=== PATIENT | male | born 1960 | race Caucasian/White ===

== ENCOUNTER 2020-07-18 11:53 | Outpatient (REF) | payer OTHER, SELFPAY ==
--- NOTE | ~2020-07-18 | XR_ITS ---
EXAMINATION: XR THORACIC SPINE CLINICAL INFORMATION: Sprain of ligaments. COMPARISON: None. TECHNIQUE: 3 views of the thoracic spine were obtained. FINDINGS: Normal vertebral body alignment. The thoracic kyphosis is maintained. No acute fracture or subluxation. No loss of intervertebral disc height with anterior endplate osteophytes within the lower thoracic spine. The visualized lungs are clear. XR/XR thoracic spine 3V IMPRESSION: [id number] degenerative disc disease within the lower thoracic spine.
== END 2020-07-18 11:54 | disposition home or self-care (01) ==
LOC: HO.XRAY 11:53
PROVIDERS: PCP Internal Medicine
DX: S23.3XXA Sprain of ligaments of thoracic spine, initial encounter (principal); M54.6 Pain in thoracic spine
CPT/HCPCS: 72072

== ENCOUNTER 2020-07-19 08:51 | Outpatient (REF) | payer OTHER, SELFPAY ==
[2020-07-19 09:43] LABS: MANUAL DIFF FLAG NO
[2020-07-19 10:02] LABS: Basophils Percent Auto 1.1 % (0-2); Eosinophils Absolute Auto 0.2 X10*3/uL (0.0-0.4); Eosinophils Percent Auto 6.1 % (0-4); Hematocrit 39.6 % (42-52); Hemoglobin 12.4 g/dl (14.0-18.0); Imm Gran Abs Auto 0.01 X10*3/uL (0.00-0.03); Imm Gran Pct Auto 0.3 % (0.0-0.4); Lymphocytes Absolute Auto 1.5 X10*3/uL (1.2-4.9); Lymphocytes Percent Auto 40.5 % (20-40); Mean Corpuscular HGB Conc 31.3 g/dl (31.0-36.0); Mean Corpuscular Hemoglobin 26.8 pg (27.0-33.0); Mean Corpuscular Volume 85.7 fL (80-98); Mean Platelet Volume 10.6 fL (9.4-12.4); Monocytes Absolute Auto 0.4 X10*3/uL (0.1-1.2); Monocytes Percent Auto 11.3 % (2-11); Neutrophils Absolute Auto 1.5 X10*3/uL (2.0-8.3); Neutrophils Percent Auto 40.7 % (45-73); Platelet Count 265 X10*3/uL (160-400); Red Blood Count 4.62 X10*6/uL (4.60-5.80); Red Cell Distribution Width 14.4 % (11.0-16.0); White Blood Count 3.6 X10*3/uL (4.8-10.8)
[2020-07-19 10:10] LABS: Alanine Aminotransferase 20 U/L (0-40); Alkaline Phosphatase 74 U/L (39-117); Anion Gap 12 (12-20); Aspartate Amino Transferase 22 U/L (5-37); Bilirubin Total 0.5 mg/dL (0.0-1.0); Blood Urea Nitrogen 13 mg/dL (9-16); Calcium 9.1 mg/dL (8.4-10.2); Carbon Dioxide 26 mmol/L (22-29); Chloride 105 mmol/L (96-108); Cholesterol 205 mg/dL; Estimated Glomerular Filt Rate > 60; Glucose Fasting 157 mg/dL (60-99); HDL Cholesterol 47 mg/dL; LDL Cholesterol Calculated 143 mg/dl; Potassium 4.4 mmol/L (3.3-5.1); Sodium 139 mmol/L (135-145); Total Protein 7.1 g/dL (6.5-8.0); Triglycerides 75 mg/dL
[2020-07-19 10:51] LABS: Creatinine Urine 197.15 mg/dL; Microalbum/Creatinine Ratio Ur 2.5 ug/mg cr
== END 2020-07-19 08:52 | disposition home or self-care (01) ==
LOC: HO.LAB 08:51
PROVIDERS: PCP Internal Medicine; Visit Provider Internal Medicine
DX: E11.9 Type 2 diabetes mellitus without complications (principal); E78.5 Hyperlipidemia, unspecified; D72.819 Decreased white blood cell count, unspecified
CPT/HCPCS: 36415; 80053; 80061; 82043; 85025

== ENCOUNTER 2020-08-21 12:25 | Emergency (ER) | payer OTHER, SELFPAY ==
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
[2020-08-21 14:01] VITALS: BP 192/90; PULSE 85; RESP 18; TEMP 36.6; BMI 32.5
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
[2020-08-21 15:09] VITALS: BP 169/79; PULSE 76; RESP 16; O2SAT 100
== END 2020-08-21 15:45 | disposition home or self-care (01) ==
PROVIDERS: Emergency Provider Emergency Medicine; PCP Internal Medicine
DX: S29.012A Strain of muscle and tendon of back wall of thorax, initial encounter (principal); S20.211A Contusion of right front wall of thorax, initial encounter; V43.52XA Car driver injured in collision with other type car in traffic accident, initial encounter; I10 Essential (primary) hypertension; E11.9 Type 2 diabetes mellitus without complications; E78.5 Hyperlipidemia, unspecified; Y93.89 Activity, other specified; Y92.414 Local residential or business street as the place of occurrence of the external cause; Y99.9 Unspecified external cause status; Z79.02 Long term (current) use of antithrombotics/antiplatelets; Z79.899 Other long term (current) drug therapy; Z79.84 Long term (current) use of oral hypoglycemic drugs
CPT/HCPCS: 71046; 71110; 99283; 99284

== ENCOUNTER 2020-10-07 11:06 | Emergency (ER) | payer OTHER, SELFPAY ==
[2020-10-07 11:22] VITALS: BP 181/94; PULSE 88; RESP 18; TEMP 36.8; O2SAT 100; BMI 34.9
[2020-10-07 11:49] LABS: Glucose, Whole Blood 170 mg/dL (60-115)
[2020-10-07] MEDS: 0.9 % Sodium Chloride 1,000 ML 999 ML IVCONT (11:54)
--- NOTE | 2020-10-07 11:55 | ED_ITS ---
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 Patient declined any history of loss of weight. Related Data Home Medications Medication Instructions Recorded Confirmed blood sugar diagnostic #10 ea 04/17/20 04/17/20 meloxicam 15 mg tablet 15 mg PO DAILY 04/17/20 04/17/20 metformin 500 mg tablet 500 mg PO BID 04/17/20 04/17/20 sildenafil 100 mg tablet [id number] mg PO DAILY PRN 04/17/20 04/17/20 simvastatin 40 mg tablet 40 mg PO BEDTIME 04/17/20 04/17/20 verapamil 240 mg tablet,extended 240 mg PO DAILY 04/17/20 04/17/20 release Previous Rx's Medication Instructions Recorded lancets 28 gauge #100 ea 07/29/20 fluticasone propionate 50 1 spray INTRANASAL DAILY #16 ml 08/18/20 mcg/actuation nasal spray,suspension lisinopril 10 mg tablet 10 mg PO DAILY 30 Days #30 tab 08/18/20 cyclobenzaprine 10 mg PO TID #10 tab 08/21/20 naproxen [Naprosyn] 500 mg PO BID #20 tab 08/21/20 Allergies Allergy/AdvReac Type Severity Reaction Status Date / Time No Known Allergies Allergy Verified 04/17/20 16:19 [No Known Allergies*] Review of Systems Review of Systems: All other systems are reviewed and are negative Constitutional: Reports as per HPI and Reports no additional constitutional complaints Eyes: Reports as per HPI and Reports no additional eye complaints Reports system reviewed and no additional complaints, except as documented Cardiovascular: Reports as per HPI and Reports no additional cardiovascular complaints Respiratory: Reports as per HPI and Reports no additional respiratory complaints Gastrointestinal: Reports as per HPI and Reports no additional gastrointestinal complaints Genitourinary: Reports no additional female genitourinary complaints Musculoskeletal: Reports no additional musculoskeletal complaints Skin/Breast: Reports system reviewed and no additional complaints, except as docu Psychiatric: Reports no additional psychiatric complaints Endocrine: Reports no additional endocrine complaints Hematologic/Lymphatic: Reports no additional hematologic/lymphatic complaints Allergic/Immunologic: Reports no additional allergic/immunologic complaints Reports system reviewed and no additional complaints, except as documented and Reports Abnormal speech present [facility] Past Medical History Medical History Diabetes mellitus Dyslipidemia Essential hypertension Leg edema Leukopenia Lipoma of extremity Surgical History No pertinent past surgical history Family History Family History Father Diabetes Hypertension CVD (cardiovascular disease) Mother Stroke Diabetes Hypertension Brother No problems noted. Sister No problems noted. Social History Social History Alcohol intake: current Alcohol intake frequency: 3 or more drinks per day Alcohol type: beer Patient Tobacco Use Status: Never used Tobacco Use of substances other than those prescribed or required for medical reasons: No Substance Use Type: Marijuana Advance Directives: No Advance Directives Information Provided: No Physical Exam Vital Signs: Vital Signs: Last Vital Signs Temp 98.8 F 10/07/20 12:09 Pulse 68 10/07/20 12:47 Resp 18 10/07/20 12:47 BP 141/56 H 10/07/20 12:47 Pulse Ox 98 10/07/20 12:47 Body Mass Index 34.9 Vital signs have been reviewed as appeared to be correct. Blood pressure elevated. Heart rate normal. Respiration rate normal. Temperature normal. Oxygen saturation normal. Appearance: Alert. Oriented X3. No acute distress. Head: Normal external exam. Normocephalic. Atraumatic. No Smith signs noted. No raccoon eyes noted Eyes: PERRLA. EOMI. Conjunctiva and sclera normal. Eyelids normal. ENT: TM's Normal. Pharynx normal. Uvula midline. Moist mucous membranes. No trismus noted. No drooling noted. No muffled voice noted. Neck: Normal inspection. Neck supple. FROM. No adenopathy. Thyroid Normal. No meningeal signs. No neck mass noted. CVS: Normal heart rate and rhythm. Heart sound normal. No murmurs noted. Pulses normal throughout. Respiratory: No respiratory distress. Painless inspiration. Breath sounds normal. No wheezes/rales/rhonchi noted. Chest nontender. No accessory muscle usage noted or decreased air movement noted. Abdomen: Soft and nontender. Bowel sounds normal in all 4 quadrants. No distention noted. No organomegaly noted. No visible injury noted. Back: No CVA tenderness. Full range of motion noted. Skin: Skin warm and dry. Normal skin color. Normal skin turgor. No rashes/lesions/lacerations noted. Extremities: No lower extremity edema. Extremities exhibit normal range of motion. Extremities nontender. Neuro: Oriented X 3. No motor deficit. No sensory deficit. Reflexes normal. Course Course Course Narrative: Assessment and plan. Hyperglycemia of 174, otherwise unremarkable electrolytes and labs workup, no evidence of DKA, patient was instructed to follow up with his PCP for closer monitoring of his hyperglycemia. Medical Decision Making Lab Data Lab results reviewed: Yes I reviewed the patient's lab results. Result diagrams: 10/07/20 11:49 10/07/20 11:49 Labs: Lab Results 10/07/20 10/07/20 10/07/20 Range/Units 11:46 11:49 11:49 WBC 5.8 (4.8-10.8) X10*3/uL RBC 4.31 L (4.60-5.80) X10*6/uL Hgb 11.7 L (14.0-18.0) g/dl Hct 36.0 L (42-52) % MCV 83.5 (80-98) fL MCH 27.1 (27.0-33.0) pg MCHC 32.5 (31.0-36.0) g/dl RDW 14.1 (11.0-16.0) % Plt Count 324 (160-400) X10*3/uL MPV 9.9 (9.4-12.4) fL Immature Gran % (Auto) 0.2 (0.0-0.4) % Neut % (Auto) 70.2 (45-73) % Lymph % (Auto) 18.4 L (20-40) % [place] % (Auto) 9.1 (2-11) % Eos % (Auto) 1.4 (0-4) % Baso % (Auto) 0.7 (0-2) % Lymph # (Auto) 1.1 L (1.2-4.9) X10*3/uL [place] # (Auto) 0.5 (0.1-1.2) X10*3/uL Eos # (Auto) 0.1 (0.0-0.4) X10*3/uL Baso # (Auto) 0.0 (0.0-0.2) X10*3/uL Abs Immat Gran (auto) 0.01 (0.00-0.03) X10*3/uL Absolute Neuts (auto) 4.1 (2.0-8.3) X10*3/uL Absolute Nucleated RBC 0.000 (0.0-0.012) X10*3/uL Nucleated RBC % (auto) 0.0 (0.0-0.2) /100WBC Sodium 133 L (135-145) mmol/L Potassium 4.0 (3.3-5.1) mmol/L Chloride 99 (96-108) mmol/L Carbon Dioxide 26 (22-29) mmol/L Anion Gap 12 (12-20) BUN 14 (9-16) mg/dL Creatinine 1.08 (0.5-1.4) mg/dL Estim Creat Clear Calc 84.0 Estimated GFR > 60 POC Glucose 170 H (60-115) mg/dL Random Glucose 178 H (60-115) mg/dL Calcium 9.5 (8.4-10.2) mg/dL Total Bilirubin 0.6 (0.0-1.0) mg/dL Direct Bilirubin 0.2 (0.0-0.5) mg/dL AST 23 (5-37) U/L ALT 15 (0-40) U/L Alkaline Phosphatase 95 D (39-117) U/L Total Protein 7.6 (6.5-8.0) g/dL Albumin 3.9 (3.5-5.0) g/dL Lipase 63 (8-78) U/L Discharge Plan Discharge Clinical Impression: Diabetes mellitus Qualifiers: Diabetes mellitus type: type 2 Diabetes mellitus complication status: without complication Patient Disposition: Home, Self-Care Instructions: Diabetes and Exercise (ED) Prescriptions: No Action (DME) lancets 28 gauge misc See Rx Instructions ea topical DAILY Qty: 100 RF: 11 lisinopril 10 mg tablet 10 mg PO DAILY 30 Days Qty: 30 RF: 6 fluticasone propionate 50 mcg/actuation spray,suspension 1 spray intranasal DAILY Qty: 16 RF: 4 cyclobenzaprine 10 mg tablet 10 mg PO TID Qty: 10 RF: 0 naproxen [Naprosyn] 500 mg tablet 500 mg PO BID Qty: 20 RF: 0 sildenafil 100 mg tablet [id number] mg PO DAILY PRNRF: 0 verapamil 240 mg tablet extended release 240 mg PO DAILY RF: 0 simvastatin 40 mg tablet 40 mg PO BEDTIME RF: 0 meloxicam 15 mg tablet 15 mg PO DAILY RF: 0 metformin 500 mg tablet 500 mg PO BID RF: 0 (DME) FreeStyle Lite Strips Strip See Rx Instructions strip subcut TID Qty: 10 RF: 0 Referrals: Jessica Grajeda MD [Primary Care Provider] - 2 days
[2020-10-07 11:59] LABS: MANUAL DIFF FLAG NO
[2020-10-07 12:00] LABS: Basophils Percent Auto 0.7 % (0-2); Eosinophils Absolute Auto 0.1 X10*3/uL (0.0-0.4); Eosinophils Percent Auto 1.4 % (0-4); Hemoglobin 11.7 g/dl (14.0-18.0); Imm Gran Abs Auto 0.01 X10*3/uL (0.00-0.03); Imm Gran Pct Auto 0.2 % (0.0-0.4); Lymphocytes Absolute Auto 1.1 X10*3/uL (1.2-4.9); Lymphocytes Percent Auto 18.4 % (20-40); Mean Corpuscular HGB Conc 32.5 g/dl (31.0-36.0); Mean Corpuscular Hemoglobin 27.1 pg (27.0-33.0); Mean Corpuscular Volume 83.5 fL (80-98); Mean Platelet Volume 9.9 fL (9.4-12.4); Monocytes Absolute Auto 0.5 X10*3/uL (0.1-1.2); Monocytes Percent Auto 9.1 % (2-11); Neutrophils Absolute Auto 4.1 X10*3/uL (2.0-8.3); Neutrophils Percent Auto 70.2 % (45-73); Platelet Count 324 X10*3/uL (160-400); Red Blood Count 4.31 X10*6/uL (4.60-5.80); Red Cell Distribution Width 14.1 % (11.0-16.0); White Blood Count 5.8 X10*3/uL (4.8-10.8)
[2020-10-07 12:09] VITALS: BP 167/77; PULSE 73; RESP 18; TEMP 37.1; O2SAT 100
[2020-10-07 12:27] LABS: Alanine Aminotransferase 15 U/L (0-40); Albumin Level 3.9 g/dL (3.5-5.0); Alkaline Phosphatase 95 U/L (39-117); Anion Gap 12 (12-20); Aspartate Amino Transferase 23 U/L (5-37); Bilirubin Direct 0.2 mg/dL (0.0-0.5); Bilirubin Total 0.6 mg/dL (0.0-1.0); Blood Urea Nitrogen 14 mg/dL (9-16); Calcium 9.5 mg/dL (8.4-10.2); Carbon Dioxide 26 mmol/L (22-29); Chloride 99 mmol/L (96-108); Estimated Glomerular Filt Rate > 60; Glucose Random 178 mg/dL (60-115); Lipase 63 U/L (8-78); Sodium 133 mmol/L (135-145); Total Protein 7.6 g/dL (6.5-8.0)
[2020-10-07 12:47] VITALS: BP 141/56; PULSE 68; RESP 18; O2SAT 98
== END 2020-10-07 13:02 | disposition home or self-care (01) ==
PROVIDERS: Emergency Provider Emergency Medicine; PCP Internal Medicine
DX: E11.65 Type 2 diabetes mellitus with hyperglycemia (principal); I10 Essential (primary) hypertension; Z79.84 Long term (current) use of oral hypoglycemic drugs; Z79.899 Other long term (current) drug therapy
CPT/HCPCS: 36415; 80048; 80076; 82947; 83690; 85025; 96360; 99284

== ENCOUNTER 2020-10-07 23:53 | Inpatient (IN) | payer OTHER, SELFPAY ==
--- NOTE | ~2020-10-07 | CT_ITS ---
EXAMINATION: CT ABDOMEN AND PELVIS WITH CONTRAST CLINICAL INFORMATION: Epigastric pain COMPARISON: None TECHNIQUE: Multidetector volumetric images were obtained from the superior aspect of the liver through the pubic symphysis following administration 85 mL of Omnipaque 350 intravenous contrast. Sagittal and coronal reformatted images were obtained on the technologist's workstation. Oral contrast: No This CT examination was performed using dose optimization techniques as appropriate, variously including the following: *Automated exposure control *Adjustment of mA and/or kV according to patient size (this includes techniques or standardized protocols for targeted exams where dose is matched to indication/reason for exam; i.e. extremities or head) *Use of iterative reconstruction technique DLP: 750 mGy-cm FINDINGS: LUNG BASES: Minimal basilar atelectasis. 0.4 cm right lower lobe nodule along the pleura, series 6 image 8. LIVER, GALLBLADDER, AND BILIARY TREE: The liver is normal in size, shape, and attenuation. No focal hepatic lesion or biliary ductal dilatation is present. The gallbladder is unremarkable with no evidence of radiopaque gallstones, gallbladder wall thickening, or obvious pericholecystic inflammatory changes. PANCREAS: Unremarkable. SPLEEN: Unremarkable. ADRENAL GLANDS: Unremarkable. KIDNEYS AND URETERS: The kidneys are normal in size, shape, and attenuation. No hydronephrosis, hydroureter, or calculi seen. No perinephric stranding. BLADDER: Unremarkable. GASTROINTESTINAL TRACT: Abnormal stomach. There is gastric wall thickening which is most prominent at the gastric antrum. There is an area of fluid and gas along the dorsal wall, series 3 image 30. This likely represents an ulcer. There is associated perforation with free intraperitoneal air present. Normal caliber small bowel. No obstruction. No colonic wall thickening or inflammatory change. Normal appendix. ABDOMINAL WALL: No significant hernia is appreciated. LYMPH NODES: Normal. VASCULAR: Normal caliber aorta with moderate atherosclerotic calcification. PELVIC VISCERA: The prostate and seminal vesicles are unremarkable. OSSEOUS STRUCTURES: No acute or suspicious osseous abnormality. Mild degenerative changes in the spine. CT/CT abdomen pelvis w con IMPRESSION: Perforated gastric ulcer. This critical result was discussed with Jody Kaiser MD by telephone at 10/08/2020 3:03 AM and it was ascertained that the content and urgency of the report was understood at the time of direct communication.
--- NOTE | ~2020-10-07 | XR_ITS ---
EXAMINATION: XR CHEST CLINICAL INFORMATION: NG tube position COMPARISON: 08/21/2020 TECHNIQUE: Frontal view of the chest was obtained. FINDINGS: Nasogastric tube and side port terminating in the proximal stomach. The lungs are hypoinflated and the cardiomediastinal silhouette is stable. XR/XR chest 1V IMPRESSION: Nasogastric tube terminates in the stomach.
[2020-10-08] VITALS (16 sets, daily range): BP systolic 139–184; BP diastolic 70–86; PULSE 55–98; RESP 14–20; TEMP 36–37.2; O2SAT 96–100; BMI 34.0; BMI 30.7
--- NOTE | 2020-10-08 00:59 | ED_ITS ---
HPI - Abdominal Pain General Chief Complaint: Abdominal Pain Stated Complaint: abd pain Time Seen by Provider: 10/08/20 00:51 History of Present Illness HPI narrative: Patient is 60-year-old male with a history diabetes presents today with having abdominal pain in the epigastric area. Patient had fried foods. Subsequently had pain in the epigastric area. No nausea no vomiting. No chest pain or shortness of breath. No diaphoresis. No history of NE. No diarrhea. Patient is from home. No coughing or congestion. Pain is burning. Nonradiating. No history of abdominal surgery in the past. No history of similar symptoms. Positive constipation. Related Data Home Medications Medication Instructions Recorded Confirmed blood sugar diagnostic #10 ea 04/17/20 04/17/20 meloxicam 15 mg tablet 15 mg PO DAILY 04/17/20 04/17/20 metformin 500 mg tablet 500 mg PO BID 04/17/20 04/17/20 sildenafil 100 mg tablet [id number] mg PO DAILY PRN 04/17/20 04/17/20 simvastatin 40 mg tablet 40 mg PO BEDTIME 04/17/20 04/17/20 verapamil 240 mg tablet,extended 240 mg PO DAILY 04/17/20 04/17/20 release Previous Rx's Medication Instructions Recorded lancets 28 gauge #100 ea 07/29/20 fluticasone propionate 50 1 spray INTRANASAL DAILY #16 ml 08/18/20 mcg/actuation nasal spray,suspension lisinopril 10 mg tablet 10 mg PO DAILY 30 Days #30 tab 08/18/20 cyclobenzaprine 10 mg PO TID #10 tab 08/21/20 naproxen [Naprosyn] 500 mg PO BID #20 tab 08/21/20 Allergies Allergy/AdvReac Type Severity Reaction Status Date / Time No Known Allergies Allergy Verified 04/17/20 16:19 [No Known Allergies*] Review of Systems Review of Systems No fever no chills no chest pain or shortness of breath positive epigastric pain. Yes all other systems are reviewed and are negative Physical Exam Vital Signs: Vital Signs: Last Vital Signs Temp 97.2 F 10/08/20 00:24 Pulse 98 10/08/20 02:00 Resp 16 10/08/20 02:00 BP 148/78 H 10/08/20 02:00 Pulse Ox 98 10/08/20 02:00 Body Mass Index 34.0 Appearance: Alert. Oriented X3. No acute distress. Eyes: Pupils equal, round and reactive to light. ENT: Pharynx normal. Neck: Normal inspection. Neck supple. No lymph nodes noted. No crepitus CVS: Normal heart rate and rhythm. Pulses normal. Normal S1 and S2 Respiratory: No respiratory distress. Breath sounds normal. No Wheezing. No rales Abdomen: Soft and nontender. No rigidity. No distention. good BS x4 Skin: Skin warm and dry. Normal skin color. Normal skin turgor. Extremities: No lower extremity edema. Neurovascular intact to all extremities. No Lacerations. No Rash Neuro: Oriented X 3. No motor deficit. No sensory deficit. Moving all extermities. No slurred speech MDM - Abdominal Pain MDM Narrative Medical decision making narrative: Positive epigastric pain. Patient's electrolytes normal. White count is 8.8. But have epigastric pain. CT scan show perforated gastric ulcer. Surgery contacted emergently. Will start IV antibiotics. Patient will most likely need to go to the OR. Patient's EKG showed a sinus pattern with a right bundle branch block. Heart rate was approximately 90. P IN intervals normal QRS was wide. QT within normal limits nonspecific T-wave flattening noted diffusely IV fluids was started. Patient to be admitted. Differential Diagnosis Differential diagnosis: Likely abdominal pain, aortic dissection, acute appendicitis, bowel perforation, calculus of kidney, constipation, diverticulitis, endometriosis and gastritis Lab Data Result diagrams: 10/08/20 01:52 10/08/20 01:52 Labs: Lab Results 10/08/20 10/08/20 10/08/20 Range/Units 01:52 01:52 01:52 WBC 8.8 (4.8-10.8) X10*3/uL RBC 4.24 L (4.60-5.80) X10*6/uL Hgb 11.6 L (14.0-18.0) g/dl Hct 35.7 L (42-52) % MCV 84.2 (80-98) fL MCH 27.4 (27.0-33.0) pg MCHC 32.5 (31.0-36.0) g/dl RDW 14.3 (11.0-16.0) % Plt Count 305 (160-400) X10*3/uL MPV 9.6 (9.4-12.4) fL Immature Gran % (Auto) 0.3 (0.0-0.4) % Neut % (Auto) 85.0 H (45-73) % Lymph % (Auto) 7.5 L (20-40) % [place] % (Auto) 6.2 (2-11) % Eos % (Auto) 0.7 (0-4) % Baso % (Auto) 0.3 (0-2) % Lymph # (Auto) 0.7 L (1.2-4.9) X10*3/uL [place] # (Auto) 0.5 (0.1-1.2) X10*3/uL Eos # (Auto) 0.1 (0.0-0.4) X10*3/uL Baso # (Auto) 0.0 (0.0-0.2) X10*3/uL Abs Immat Gran (auto) 0.03 (0.00-0.03) X10*3/uL Absolute Neuts (auto) 7.5 (2.0-8.3) X10*3/uL Absolute Nucleated RBC 0.000 (0.0-0.012) X10*3/uL Nucleated RBC % (auto) 0.0 (0.0-0.2) /100WBC Sodium 135 (135-145) mmol/L Potassium 3.9 (3.3-5.1) mmol/L Chloride 99 (96-108) mmol/L Carbon Dioxide 25 (22-29) mmol/L Anion Gap 15 (12-20) BUN 16 (9-16) mg/dL Creatinine 1.11 (0.5-1.4) mg/dL Estim Creat Clear Calc 83.1 Estimated GFR > 60 Random Glucose 176 H (60-115) mg/dL Calcium 9.5 (8.4-10.2) mg/dL Total Bilirubin 0.7 (0.0-1.0) mg/dL Direct Bilirubin 0.3 (0.0-0.5) mg/dL AST 26 (5-37) U/L ALT 16 (0-40) U/L Alkaline Phosphatase 101 (39-117) U/L Troponin I High Sens 13.0 (<3.5-35.0) ng/L Total Protein 7.6 (6.5-8.0) g/dL Albumin 4.0 (3.5-5.0) g/dL Lipase 11 (8-78) U/L Critical Care Time Critical Care Time Total Critical Care Time: 40 Attestation: I have personally provided 40 minutes of critical care time exclus greg of time spent on separately billable procedures. Time includes review of lab data, radiology results, discussion with consultants, and monitoring for potential decompensation. Interventions were performed as documented above Discharge Plan Discharge Clinical Impression: Perforated ulcer of intestine Prescriptions: No Action (DME) lancets 28 gauge misc See Rx Instructions ea topical DAILY Qty: 100 RF: 11 lisinopril 10 mg tablet 10 mg PO DAILY 30 Days Qty: 30 RF: 6 fluticasone propionate 50 mcg/actuation spray,suspension 1 spray intranasal DAILY Qty: 16 RF: 4 cyclobenzaprine 10 mg tablet 10 mg PO TID Qty: 10 RF: 0 naproxen [Naprosyn] 500 mg tablet 500 mg PO BID Qty: 20 RF: 0 sildenafil 100 mg tablet [id number] mg PO DAILY PRNRF: 0 verapamil 240 mg tablet extended release 240 mg PO DAILY RF: 0 simvastatin 40 mg tablet 40 mg PO BEDTIME RF: 0 meloxicam 15 mg tablet 15 mg PO DAILY RF: 0 metformin 500 mg tablet 500 mg PO BID RF: 0 (DME) FreeStyle Lite Strips Strip See Rx Instructions strip subcut TID Qty: 10 RF: 0 PMFSH Past Medical History Attestation statement: The following information was validated with the patient. Medical History Diabetes mellitus Dyslipidemia Essential hypertension Leg edema Leukopenia Lipoma of extremity Surgical History No pertinent past surgical history Family History Family History Father Diabetes Hypertension CVD (cardiovascular disease) Mother Stroke Diabetes Hypertension Brother No problems noted. Sister No problems noted. Social History Social History Alcohol intake: current Alcohol intake frequency: holidays/special occasions only Alcohol type: beer Patient Tobacco Use Status: Never used Tobacco Use of substances other than those prescribed or required for medical reasons: No Substance Use Type: Marijuana Advance Directives: No
--- NOTE | 2020-10-08 00:59 | ECG_ITS ---
Test Reason : CHEST PAIN Blood Pressure : / mmHG Vent. Rate : 088 BPM Atrial Rate : 088 BPM P-R Int : 134 ms QRS Dur : 132 ms QT Int : 396 ms P-R-T Axes : 047 004 026 degrees QTc Int : 479 ms Normal sinus rhythm Right bundle branch block Abnormal ECG No previous ECGs available Referred By: Jody Kaiser Electronically Signed By:NEHA BLAND
[2020-10-08 01:56] LABS: MANUAL DIFF FLAG NO
[2020-10-08 01:57] LABS: Basophils Percent Auto 0.3 % (0-2); Eosinophils Absolute Auto 0.1 X10*3/uL (0.0-0.4); Eosinophils Percent Auto 0.7 % (0-4); Hematocrit 35.7 % (42-52); Hemoglobin 11.6 g/dl (14.0-18.0); Imm Gran Abs Auto 0.03 X10*3/uL (0.00-0.03); Imm Gran Pct Auto 0.3 % (0.0-0.4); Lymphocytes Absolute Auto 0.7 X10*3/uL (1.2-4.9); Lymphocytes Percent Auto 7.5 % (20-40); Mean Corpuscular HGB Conc 32.5 g/dl (31.0-36.0); Mean Corpuscular Hemoglobin 27.4 pg (27.0-33.0); Mean Corpuscular Volume 84.2 fL (80-98); Mean Platelet Volume 9.6 fL (9.4-12.4); Monocytes Absolute Auto 0.5 X10*3/uL (0.1-1.2); Monocytes Percent Auto 6.2 % (2-11); Neutrophils Absolute Auto 7.5 X10*3/uL (2.0-8.3); Platelet Count 305 X10*3/uL (160-400); Red Blood Count 4.24 X10*6/uL (4.60-5.80); Red Cell Distribution Width 14.3 % (11.0-16.0); White Blood Count 8.8 X10*3/uL (4.8-10.8)
[2020-10-08 02:21] LABS: Alanine Aminotransferase 16 U/L (0-40); Alkaline Phosphatase 101 U/L (39-117); Anion Gap 15 (12-20); Aspartate Amino Transferase 26 U/L (5-37); Bilirubin Direct 0.3 mg/dL (0.0-0.5); Bilirubin Total 0.7 mg/dL (0.0-1.0); Blood Urea Nitrogen 16 mg/dL (9-16); Calcium 9.5 mg/dL (8.4-10.2); Carbon Dioxide 25 mmol/L (22-29); Chloride 99 mmol/L (96-108); Creatinine Clr Calc Pharmacy 83.1; Estimated Glomerular Filt Rate > 60; Glucose Random 176 mg/dL (60-115); Lipase 11 U/L (8-78); Potassium 3.9 mmol/L (3.3-5.1); Sodium 135 mmol/L (135-145); Total Protein 7.6 g/dL (6.5-8.0)
[2020-10-08] MEDS: ondansetron HCL 4 MG/2 ML VIAL IVPUSH (02:29)
[2020-10-08] MEDS: PHENobarb/Hyoscy/Atropine/Scop 10 ML ELIXIR PO (02:30)
[2020-10-08] MEDS: Magnesium Hydrox/Alum Hydrox 30 ML ORAL.SUSP PO (02:30)
[2020-10-08] MEDS: Lidocaine HCl Viscous 2 % 15 ML SOLUTION MUCOUS MEM (02:30)
--- NOTE | 2020-10-08 02:34 | PC.NURSE ---
pt going to ct
[2020-10-08] MEDS: iohexoL 350 MG/ML 100 ML INFUS..BTL 85 ML IV (02:50)
[2020-10-08] MEDS: cefTRIAXone sodium 2 GM in 0.9 % Sodium Chloride 50 ML IV (03:30)
[2020-10-08] MEDS: metroNIDAZOLE/NS 500 MG/100 ML PIGGYBACK 100 MG IV (03:30)
[2020-10-08 03:38] LABS: Lactic Acid 1.3 mmol/L (0.5-2.0)
[2020-10-08 03:46] LABS: COVID-19 Test Negative (Negative); IDNOW Serial# 9DD0AD1C
[2020-10-08] MEDS: Pantoprazole Sodium 40 MG/10 ML VIAL IVPUSH (03:48)
[2020-10-08 03:51] LABS: Glucose Urine UA NEG (NEG); Leukocyte Esterase Urine NEG (NEG); Nitrite Urine NEG (NEG); PH 5.5 (5.0-8.0); Urine Blood NEG (NEG); Urine Ketones 40 MG/DL (NEG); Urine Protein NEG (NEG-TRACE)
[2020-10-08 03:52] LABS: Appearance Urine CLEAR; Color Urine YELLOW; UACC Culture Trigger NO
--- NOTE | 2020-10-08 05:16 | P.HPGS_ITS ---
History of Present Illness History of Present Illness Date of Service: 10/08/20 Chief complaint: abd pain Narrative: Uday Glass is a 60 year old male who was feeling well until around 19:00 last night when he had acute onset of severe epigastric pain. The pain was persistent and severe until after he ride in the emergency department. It has diminished somewhat since that time. He reports that he had sweating associated with the pain. He does not report fever, chills, nausea or vomiting. He felt slightly lightheaded at the time of onset of the pain, but that has resolved. He has not had similar pain in the past. He has a history of arthritis and takes nonsteroidal anti-inflammatory medication. He drinks alcohol, generally a few beers a week. He does not smoke cigarettes. In the emergency department, a CT scan of the abdomen and pelvis was obtained and revealed: IMPRESSION: Perforated gastric ulcer. This critical result was discussed with Jody Kaiser MD by telephone at 10/08/2020 3:03 AM and it was ascertained that the content and urgency of the report was understood at the time of direct communication. Dictated By:Naveen Farrell MDSigned By:<Electronically signed by Naveen Farrell MD in OV>10/08/20 0304 Review of Systems Constitutional: Constitutional: Denies chills, Denies fever(s) and Denies headache(s) Eyes: Eyes: Reports requires corrective lenses ENT: Reports dizziness and Denies headache(s) Cardiovascular: Cardiovascular: Denies chest pain, Denies palpitations and Denies dyspnea Respiratory: Respiratory: Denies cough, Denies dyspnea and Denies wheezing Gastrointestinal: Gastrointestinal: Reports as per HPI Genitourinary: Genitourinary: Reports no additional male genitourinary compla ints Musculoskeletal: Musculoskeletal: Reports back pain and Reports arthralgias Neurologic: Reports dizziness and Denies headache(s) Endocrine: Endocrine: Denies palpitations Hematologic/Lymphatic: Hematologic/Lymphatic: Denies easy bleeding and Denies easy bruising Comments: History of leukopenia, etiology unknown Allergic/Immunologic: Allergic/Immunologic: Denies wheezing PMFSH Past Medical History Medical History Diabetes mellitus Dyslipidemia Essential hypertension Leg edema Leukopenia Lipoma of extremity Family History Family History Father Diabetes Hypertension CVD (cardiovascular disease) Mother Stroke Diabetes Hypertension Brother No problems noted. Sister No problems noted. Surgical History Surgical History No pertinent past surgical history Social History Social History Alcohol intake: current Alcohol intake frequency: holidays/special occasions only Alcohol type: beer Patient Tobacco Use Status: Never used Tobacco Use of substances other than those prescribed or required for medical reasons: No Substance Use Type: Marijuana Advance Directives: No Meds Allergies Allergy/AdvReac Type Severity Reaction Status Date / Time No Known Allergies Allergy Verified 04/17/20 16:19 [No Known Allergies*] Active Medications: Current Medications Generic Name Dose Route Start Last Admin Trade Name Freq PRN Reason Stop Dose Admin Cefazolin Sodium/Dextrose 2 gm in 50 mls @ 100 mls/hr 10/08/20 05:10 Ancef IV 10/08/20 05:39 POSTOP ONE Home Medications Medication Instructions Recorded Confirmed Last Taken Type blood sugar diagnostic #10 ea 04/17/20 04/17/20 Unknown History meloxicam 15 mg tablet 15 mg PO DAILY 04/17/20 04/17/20 Unknown History metformin 500 mg tablet 500 mg PO BID 04/17/20 04/17/20 Unknown History sildenafil 100 mg tablet [id number] mg PO DAILY PRN 04/17/20 04/17/20 Unknown History simvastatin 40 mg tablet 40 mg PO BEDTIME 04/17/20 04/17/20 Unknown History verapamil 240 mg tablet,extended 240 mg PO DAILY 04/17/20 04/17/20 Unknown History release Physical Exam Vital Signs: Vital Signs: Last Vital Signs Temp 99.0 F 10/08/20 05:13 Pulse 85 10/08/20 05:13 Resp 16 10/08/20 05:13 BP 147/75 H 10/08/20 05:13 Pulse Ox 99 10/08/20 05:13 Body Mass Index 34.0 Const: General: cooperative, no acute distress and alert Orientation/consciousness: patient oriented x3 HENMT: Head: Yes normocephalic and Yes atraumatic Eyes: General: appearance normal, both eyes and all related structures Neck: Neck: Yes trachea midline and Yes supple Resp: Effort & Inspection: normal respiratory effort Auscultation: clear to auscultation bilaterally Cardio: Rate: regular rate Rhythm: regular rhythm Peripheral pulses: posterior tibial pulses present bilateral 2+ and dorsalis pedis present bilateral 2+ GI: Other: Slightly firm, normal bowel sounds, no palpable masses, mild to moderate epigastric tenderness, no rebound Skin: Other: Normal color, warm and dry Neuro: General: patient oriented x3 Extrem: General: Yes normal to inspection Results Results Labs: Short CBC 10/08/20 Range/Units 01:52 WBC 8.8 (4.8-10.8) X10*3/uL Hgb 11.6 L (14.0-18.0) g/dl Hct 35.7 L (42-52) % Plt Count 305 (160-400) X10*3/uL BMP 10/08/20 01:52 Sodium 135 Potassium 3.9 Chloride 99 Carbon Dioxide 25 BUN 16 Creatinine 1.11 Calcium 9.5 Liver Function 10/08/20 Range/Units 01:52 Total Bilirubin 0.7 (0.0-1.0) mg/dL Direct Bilirubin 0.3 (0.0-0.5) mg/dL AST 26 (5-37) U/L ALT 16 (0-40) U/L Alkaline Phosphatase 101 (39-117) U/L Albumin 4.0 (3.5-5.0) g/dL Urine 10/08/20 Range/Units 03:45 Urine Color YELLOW Urine Appearance CLEAR Urine pH 5.5 (5.0-8.0) Ur Specific [place] 1.010 (1.005-1.025) Urine Protein NEG (NEG-TRACE) MG/DL Urine Glucose (UA) NEG (NEG) MG/DL Assessment and Plan (1) Perforated ulcer of intestine: Status: Acute (2) Diabetes mellitus: Qualifiers: Diabetes mellitus type: type 2 Diabetes mellitus complication status: without complication Status: Acute (3) Essential hypertension: Status: Acute 60-year-old male with history and CT findings consistent with acute pe rforation of peptic ulcer, likely related to use of nonsteroidal anti- inflammatory medications for treatment of arthritis. Other etiologies are possible. We discussed treatment options. I explained that recommended treatment is exploration of the abdomen with repair of the perforation and a possible bowel resection, possible temporary ostomy. I reviewed the option for non operative treatment of perforated ulcer with NG decompression but recommended against this course of treatment because of the significant risk of treatment failure. We discussed risks of surgery including but not limited to infection, bleeding, DVT and PE, failure of the repair with need for further surgery, incisional hernia. We discussed the anticipated course of recovery. He agreed to proceed with exploratory laparotomy and repair perforated viscus. That is scheduled for this morning. Has received an initial dose of IV Protonix. Will monitor blood sugar and cover with sliding scale insulin during initial postoperative period. Monitor blood pressure and resume antihypertensives postoperatively. Quality Stroke Does the patient have a stroke diagnosis?: No VTE Prior VTE?: No VTE Risk Level:: Surgical - moderate VTE Device Contraindication: N/A - Device Ordered VTE Drug Contraindication: Treatment Not Indicated Procedures Date of Service Date of Service: 10/08/20
[2020-10-08] MEDS: ceFAZolin Sodium/Dextrose,Iso 2 GM/50 ML PIGGYBACK IV (05:36)
--- NOTE | 2020-10-08 05:51 | PC.NURSE ---
nurse to nurse report given to Taina FISHER.
--- NOTE | 2020-10-08 06:05 | P.CONAN_ITS ---
[facility] Active Problems Active Problems: All Active Problems (Updated 10/08/20 @ 03:08 by Jody Kaiser MD) Perforated ulcer of intestine (Acute) Leukopenia (Acute) Leg edema (Acute) Essential hypertension (Acute) Diabetes mellitus (Acute) Dyslipidemia (Acute) Past Medical History Medical History Diabetes mellitus Dyslipidemia Essential hypertension Leg edema Leukopenia Lipoma of extremity Family History Family History Father Diabetes Hypertension CVD (cardiovascular disease) Mother Stroke Diabetes Hypertension Brother No problems noted. Sister No problems noted. Surgical History Surgical History No pertinent past surgical history Social History Social History Alcohol intake: current Alcohol intake frequency: holidays/special occasions only Alcohol type: beer Patient Tobacco Use Status: Never used Tobacco Use of substances other than those prescribed or required for medical reasons: No Substance Use Type: Marijuana Advance Directives: No Meds Allergies Allergy/AdvReac Type Severity Reaction Status Date / Time No Known Allergies Allergy Verified 04/17/20 16:19 [No Known Allergies*] Home Medications Medication Instructions Recorded Confirmed Last Taken Type blood sugar diagnostic #10 ea 04/17/20 04/17/20 Unknown History meloxicam 15 mg tablet 15 mg PO DAILY 04/17/20 04/17/20 Unknown History metformin 500 mg tablet 500 mg PO BID 04/17/20 04/17/20 Unknown History sildenafil 100 mg tablet [id number] mg PO DAILY PRN 04/17/20 04/17/20 Unknown History simvastatin 40 mg tablet 40 mg PO BEDTIME 04/17/20 04/17/20 Unknown History verapamil 240 mg tablet,extended 240 mg PO DAILY 04/17/20 04/17/20 Unknown History release Exam Exam Date and Time: October 08, 2020604 Height,Weight and Vital Signs: Height 5 ft 9 in Weight 104.326 kg Last Vital Signs Temp 99.0 F 10/08/20 05:13 Pulse 85 10/08/20 05:13 Resp 16 10/08/20 05:13 BP 147/75 H 10/08/20 05:13 Pulse Ox 99 10/08/20 05:13 Pertinent Lab Results Pertinent Lab Results: Laboratory Tests 10/08/20 10/08/20 10/08/20 01:52 01:52 01:52 WBC 8.8 RBC 4.24 L Hgb 11.6 L Hct 35.7 L MCV 84.2 MCH 27.4 MCHC 32.5 RDW 14.3 Plt Count 305 MPV 9.6 Immature Gran % (Auto) 0.3 Neut % (Auto) 85.0 H Lymph % (Auto) 7.5 L [place] % (Auto) 6.2 Eos % (Auto) 0.7 Baso % (Auto) 0.3 Lymph # (Auto) 0.7 L [place] # (Auto) 0.5 Eos # (Auto) 0.1 Baso # (Auto) 0.0 Abs Immat Gran (auto) 0.03 Absolute Neuts (auto) 7.5 Absolute Nucleated RBC 0.000 Nucleated RBC % (auto) 0.0 Sodium 135 Potassium 3.9 Chloride 99 Carbon Dioxide 25 Anion Gap 15 BUN 16 Creatinine 1.11 Estim Creat Clear Calc 83.1 Estimated GFR > 60 Random Glucose 176 H Lactic Acid Calcium 9.5 Total Bilirubin 0.7 Direct Bilirubin 0.3 AST 26 ALT 16 Alkaline Phosphatase 101 Troponin I High Sens 13.0 Total Protein 7.6 Albumin 4.0 Lipase 11 Urine Color Urine Appearance Urine pH Ur Specific [place] Urine Protein Urine Glucose (UA) Urine Ketones Urine Blood Urine Nitrite Ur Leukocyte Esterase COVID-19 (K[facility]LY) COVID-19 Clin Com Blood Type Antibody Screen 10/08/20 10/08/20 10/08/20 03:17 03:25 03:25 WBC RBC Hgb Hct MCV MCH MCHC RDW Plt Count MPV Immature Gran % (Auto) Neut % (Auto) Lymph % (Auto) [place] % (Auto) Eos % (Auto) Baso % (Auto) Lymph # (Auto) [place] # (Auto) Eos # (Auto) Baso # (Auto) Abs Immat Gran (auto) Absolute Neuts (auto) Absolute Nucleated RBC Nucleated RBC % (auto) Sodium Potassium Chloride Carbon Dioxide Anion Gap BUN Creatinine Estim Creat Clear Calc Estimated GFR Random Glucose Lactic Acid 1.3 Calcium Total Bilirubin Direct Bilirubin AST ALT Alkaline Phosphatase Troponin I High Sens Total Protein Albumin Lipase Urine Color Urine Appearance Urine pH Ur Specific [place] Urine Protein Urine Glucose (UA) Urine Ketones Urine Blood Urine Nitrite Ur Leukocyte Esterase COVID-19 (KARLY) Negative COVID-19 Clin Com See Note Blood Type A Positive Antibody Screen NEGATIVE 10/08/20 03:45 WBC RBC Hgb Hct MCV MCH MCHC RDW Plt Count MPV Immature Gran % (Auto) Neut % (Auto) Lymph % (Auto) [place] % (Auto) Eos % (Auto) Baso % (Auto) Lymph # (Auto) [place] # (Auto) Eos # (Auto) Baso # (Auto) Abs Immat Gran (auto) Absolute Neuts (auto) Absolute Nucleated RBC Nucleated RBC % (auto) Sodium Potassium Chloride Carbon Dioxide Anion Gap BUN Creatinine Estim Creat Clear Calc Estimated GFR Random Glucose Lactic Acid Calcium Total Bilirubin Direct Bilirubin AST ALT Alkaline Phosphatase Troponin I High Sens Total Protein Albumin Lipase Urine Color YELLOW Urine Appearance CLEAR Urine pH 5.5 Ur Specific [place] 1.010 Urine Protein NEG Urine Glucose (UA) NEG Urine Ketones 40 Urine Blood NEG Urine Nitrite NEG Ur Leukocyte Esterase NEG COVID-19 ([facility]LY) COVID-19 Clin Com Blood Type Antibody Screen Airway Mallampati Class: II TM Dist: >3cm Neck ROM: Full Loose/Missing/Broken Teeth: Yes (Multiple missing teeth) Heart: RRR Lungs: CTA Assessment and Plan Assessment Anesthesia Assessment: Anesthesia Plan Discussed and Chart Reviewed Final Anesthetic Review NPO: Yes ASA Class: III and Emergency Final Preanesthetic Review: No Changes in Pt Med Stat, Meds/Allgs Chart Reviewed, Consent Obtained/Reviewed and Anes Risks/Benef Reviewed Patient Risk: Intermediate Procedure Risk: High Anesthetic Plan Anesthetic Plan: GA Disposition: Standard PACU
[2020-10-08 06:39] LABS: Glucose, Whole Blood 155 mg/dL (60-115)
--- NOTE | 2020-10-08 08:02 | P.OP_ITS ---
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 He presented to the emergency room. CT scan of the abdomen and pelvis revealed free intraperitoneal air and findi ngs consistent with a perforated ulcer at the level the gastric antrum. Procedure in detail: With the patient in the supine position after induction of adequate general anesthesia, time-out procedure was performed. The abdomen was prepped with ChloraPrep and was draped sterilely. 2 g of cefazolin were infused for antibiotic prophylaxis. The area for the incision in the upper midline was infiltrated with local anesthetic. A short upper midline incision was made and was carried down to the level of the fascia. The fascia was divided in the midline and the peritoneal cavity was entered. Exploration of the upper abdomen revealed a small amount of enteric contents in the right upper quadrant. The anterior gastric wall in the pre-pyloric antrum was very indurated and there was an anterior perforation approximately 1 x 0.6 cm. Cultures were taken. The upper abdomen was copiously irrigated with saline solution. The Bookwalter retractor was positioned. The perforation was repaired using at 3 sutures of 2 0 Surgilon. The ends of these sutures were left long initially. Omentum was then placed over the repair and was held in place using the redundant suture material from the closure of the perforation. The right upper quadrant was again copiously irrigated with saline solution. There is no evidence of bleeding. A 10 mm Regis-Houston drain was inserted into the right upper quadrant and was placed over the omentum adjacent to the area of the repair. The fascia was infiltrated with local anesthetic and that was closed in a running fashion using 1. Maxon. Subcutaneous tissues were infiltrated with local anesthetic. Skin was closed using javan. The drain was sutured in place using 3-0 nylon. A dry sterile dressing was applied. An NG tube was inserted. Sponge instrument counts were correct x2. He was transported to the postanesthesia care unit in stable condition.
[2020-10-08 08:21] LABS: Glucose, Whole Blood 200 mg/dL (60-115)
--- NOTE | 2020-10-08 08:31 | PC.NURSE ---
Patient arrived to PACU with #20 PRN angio in left AC and #22 PRN angio in right AC. Both sites flushed and asymptomatic.
[2020-10-08] MEDS: Lactated Ringers 1,000 ML 100 ML IVCONT ×2 (09:14→18:31)
[2020-10-08] MEDS: Piperacillin Sodium/Tazobactam 3.375 GM in 0.9 % Sodium Chloride 50 ML IV ×3 (09:27→21:05)
[2020-10-08 09:29] LABS: Glucose, Whole Blood 203 mg/dL (60-115)
[2020-10-08] MEDS: Pantoprazole Sodium 40 MG/10 ML VIAL IV (09:29)
[2020-10-08] MEDS: Insulin Lispro 100 UNIT/ML 3 ML VIAL SUBCUT (09:35)
[2020-10-08 11:25] LABS: Glucose, Whole Blood 198 mg/dL (60-115)
[2020-10-08 18:09] LABS: Glucose, Whole Blood 144 mg/dL (60-115)
[2020-10-09 00:07] LABS: Glucose, Whole Blood 145 mg/dL (60-115)
[2020-10-09] MEDS: Piperacillin Sodium/Tazobactam 3.375 GM in 0.9 % Sodium Chloride 50 ML IV ×4 (03:01→21:42)
[2020-10-09 03:35] VITALS: BP 123/71; PULSE 84; RESP 16; TEMP 36.1; O2SAT 97
[2020-10-09] MEDS: Lactated Ringers 1,000 ML 100 ML IVCONT ×2 (05:29→14:39)
[2020-10-09 06:10] LABS: Glucose, Whole Blood 135 mg/dL (60-115)
[2020-10-09 07:18] VITALS: BP 136/64; PULSE 86; RESP 18; TEMP 36.1; O2SAT 97
[2020-10-09 07:36] LABS: Hematocrit 31.7 % (42-52); Hemoglobin 10.4 g/dl (14.0-18.0); Mean Corpuscular HGB Conc 32.8 g/dl (31.0-36.0); Mean Corpuscular Hemoglobin 27.7 pg (27.0-33.0); Mean Corpuscular Volume 84.3 fL (80-98); Mean Platelet Volume 10.5 fL (9.4-12.4); Platelet Count 303 X10*3/uL (160-400); Red Blood Count 3.76 X10*6/uL (4.60-5.80); Red Cell Distribution Width 14.3 % (11.0-16.0); White Blood Count 9.7 X10*3/uL (4.8-10.8)
--- NOTE | 2020-10-09 08:05 | PM.PNGS ---
Subjective Subjective Date of Service: 10/09/20 Interval history: says he is ok seems to have adequate pain control no events reported Physical Exam Vital Signs: Vital Signs: Last Vital Signs Temp 97.0 F 10/09/20 07:18 Pulse 86 10/09/20 07:18 Resp 18 10/09/20 07:18 BP 136/64 10/09/20 07:18 Pulse Ox 97 10/09/20 07:18 Body Mass Index 30.7 Laboratory Results - last 24 hr 10/08/20 10/08/20 10/08/20 08:18 09:20 11:03 WBC RBC Hgb Hct MCV MCH MCHC RDW Plt Count MPV Absolute Nucleated RBC Nucleated RBC % (a uto) POC Glucose 200 H 203 H 198 H 10/08/20 10/08/20 10/09/20 17:58 23:58 06:05 WBC RBC Hgb Hct MCV MCH MCHC RDW Plt Count MPV Absolute Nucleated RBC Nucleated RBC % (a uto) POC Glucose 144 H 145 H 135 H 10/09/20 06:55 WBC 9.7 RBC 3.76 L Hgb 10.4 L Hct 31.7 L MCV 84.3 MCH 27.7 MCHC 32.8 RDW 14.3 Plt Count 303 MPV 10.5 Absolute Nucleated RBC 0.000 Nucleated RBC % (a uto) 0.0 POC Glucose Const: General: comfortable and no acute distress Resp: Effort & Inspection: normal respiratory effort Cardio: Rate: regular rate GI: Other: soft, dressings dry, PONCE scanty, NGT in place Progress Note: A&P Assessment and plan (1) Perforated ulcer of intestine: Status: Acute Assessment and Plan: s/p repair with omental patch doing well postop keep NGT in labs ok OOB pain mgt PPI Fall Risk Details Current Medications: Current Medications Generic Name Dose Route Start Last Admin Trade Name Freq PRN Reason Stop Dose Admin Lactated Ringer's 1,000 mls @ 100 mls/hr 10/08/20 08:54 10/09/20 05:29 Lr IVCONT 100 mls/hr .Q10H ZACHARY Administration Piperacillin Sod/Tazobactam 50 mls @ 100 mls/hr 10/08/20 08:54 10/09/20 03:35 Sod 3.375 gm/ Sodium Chloride IV Infused Q6H ZACHARY Infusion Acetaminophen 1,000 mg in 100 mls @ 400 mls/hr 10/08/20 11:15 10/09/20 05:49 Ofirmev IV Infused Q6H ZACHARY Infusion Insulin Human Lispro 0 unit 10/08/20 18:00 10/09/20 06:11 Insulin Lispro 100 Unit/Ml 3 Ml Vial SUBCUT Not Given Q6H [facility] Protocol Morphine Sulfate 4 mg 10/08/20 08:54 Morphine Sulfate 4 Mg/Ml Cartridge IVPUSH Q3H PRN Pain, severe Ondansetron HCl 4 mg 10/08/20 08:54 Ondansetron Hcl 4 Mg/2 Ml Vial IVPUSH Q8H PRN Nausea Pantoprazole Sodium 40 mg 10/08/20 09:00 10/08/20 09:29 Pantoprazole Sodium 40 Mg/10 Ml Vial IV 40 mg DAILY ZACHARY Administration Time Spent With Patient Time: Total time spent is greater than 50% in coordination of care (as documented) at patient's floor/unit and/or counseling patient: Time with patient: 15 - 24 minutes Procedures Date of Service Date of Service: 10/09/20 Quality Stroke Does the patient have a stroke diagnosis?: No VTE Prior VTE?: No VTE Risk Level:: Surgical - moderate VTE Device Contraindication: N/A - Device Ordered VTE Drug Contraindication: Treatment Not Indicated
[2020-10-09 08:34] LABS: Anion Gap 16 (12-20); Blood Urea Nitrogen 9 mg/dL (9-16); Calcium 8.7 mg/dL (8.4-10.2); Carbon Dioxide 23 mmol/L (22-29); Chloride 102 mmol/L (96-108); Creatinine Clr Calc Pharmacy 103.3; Estimated Glomerular Filt Rate > 60; Glucose Fasting 136 mg/dL (60-99); Potassium 3.5 mmol/L (3.3-5.1); Sodium 137 mmol/L (135-145)
[2020-10-09] MEDS: Pantoprazole Sodium 40 MG/10 ML VIAL IV (09:52)
[2020-10-09 11:10] VITALS: BP 139/71; PULSE 84; RESP 17; TEMP 36.3; O2SAT 97
[2020-10-09 11:19] LABS: Glucose, Whole Blood 118 mg/dL (60-115)
--- NOTE | 2020-10-09 13:02 | HO.POSTANES ---
Post Anesthesia Evaluation Post Anesthesia Evaluation Vital Signs: Vital Signs Temp Pulse Resp BP Pulse Ox 10/09/20 11:10 97.3 F 84 17 139/71 97 10/09/20 07:18 97.0 F 86 18 136/64 97 10/09/20 03:35 96.9 F 84 16 123/71 97 Anesthesia: General Endotracheal-GETA Mental Status: Awake Pain Control: Satisfactory Nausea/Vomiting: None Hydration: Adequate Anesthesia-Related Issues: No Anes. Related Issues
--- NOTE | 2020-10-09 13:25 | MHC.CM.PN ---
nurse healthcare customer service note electronic medical record reviewed along with case discused with edelmira nurse , met patient with [facility] service scheduler. dhaval pina lives with his father, he is active , independent in all adls and mobility ,without any device , he is disabled and receives mental health counseling, confirmed pcp dr Santino KWON NO DME SERVICES IN THE HOME, EDUCATED ABOUT THE IMPORTANCE OF HAVING AHEALTH CARE PROXY DECLINED AT THIS TIME , HE CONTINUES TO BE NPO , NG-TUBE , IV FLUIDS AND IV ABX . DISCHARGE PLAN HOME NO SERVICES VS HOME WITH [facility] ([facility]OS[facility]) IF NEEDED PCP DR SANTINO KWON TRANSPORTATION PATIENT TO SELF ARRANGE
--- NOTE | 2020-10-09 14:36 | MHC.CLN ---
NUTRITION PAITENT IS CURRENTLY NPO WITH PERFORATED PEPTIC ULCER. WHEN PO ADVANCES, RECOMMEND THERAPEUTIC DIET DUE TO DX DM. DIABETIC 2200 KCAL PROVIDES 28 KCAL/KG CMW. DEFER TO MD FOR DIET CONSISTENCY.
[2020-10-09 15:45] VITALS: BP 146/75; PULSE 71; RESP 20; TEMP 36.1; O2SAT 100
[2020-10-09 17:29] LABS: Glucose, Whole Blood 105 mg/dL (60-115)
[2020-10-09 19:09] VITALS: BP 141/76; PULSE 81; RESP 20; TEMP 36.1; O2SAT 99
[2020-10-09 23:53] VITALS: BP 147/71; PULSE 80; RESP 16; TEMP 36.4; O2SAT 97
[2020-10-10 00:10] LABS: Glucose, Whole Blood 84 mg/dL (60-115)
[2020-10-10] MEDS: Lactated Ringers 1,000 ML 100 ML IVCONT ×2 (03:18→23:08)
[2020-10-10] MEDS: Piperacillin Sodium/Tazobactam 3.375 GM in 0.9 % Sodium Chloride 50 ML IV ×4 (03:47→20:39)
[2020-10-10 04:00] VITALS: BP 150/75; PULSE 80; RESP 16; TEMP 36; O2SAT 95
[2020-10-10 06:09] LABS: Glucose, Whole Blood 97 mg/dL (60-115)
[2020-10-10 07:45] VITALS: BP 153/74; PULSE 82; RESP 17; TEMP 36.7; O2SAT 97
[2020-10-10] MEDS: Pantoprazole Sodium 40 MG/10 ML VIAL IV (08:44)
--- NOTE | 2020-10-10 09:12 | PM.PNGS ---
Subjective Subjective Date of Service: 10/10/20 Interval history: Says he feels okay Pain seems well controlled No events overnight Physical Exam Vital Signs: Vital Signs: Last Vital Signs Temp 98.0 F 10/10/20 07:45 Pulse 82 10/10/20 07:45 Resp 17 10/10/20 07:45 BP 153/74 H 10/10/20 07:45 Pulse Ox 97 10/10/20 07:45 Body Mass Index 30.7 Const: General: comfortable and no acute distress Resp: Effort & Inspection: normal respiratory effort Cardio: Rhythm: regular rhythm GI: Other: Dressings dry, PONCE drain serous, NG tube output minimal Palpation (GI): Soft to palpation, not firm and no guarding Progress Note: A&P Assessment and plan (1) Perforated ulcer of intestine: Status: Acute Assessment and Plan: Status post over-sew, omental patch Seems to be doing well No fever Stable vital signs Possibly DC NG tube later today and hope to start clear liquids tomorrow Continue PPI Fall Risk Details Current Medications: Current Medications Generic Name Dose Route Start Last Admin Trade Name Freq PRN Reason Stop Dose Admin Lactated Ringer's 1,000 mls @ 100 mls/hr 10/08/20 08:54 10/10/20 03:18 Lr IVCONT 100 mls/hr .Q10H ZACHARY Administration Piperacillin Sod/Tazobactam 50 mls @ 100 mls/hr 10/08/20 08:54 10/10/20 08:44 Sod 3.375 gm/ Sodium Chloride IV 100 mls/hr Q6H ZACHRAY Administration Acetaminophen 1,000 mg in 100 mls @ 400 mls/hr 10/08/20 11:15 10/10/20 05:48 Ofirmev IV Infused Q6H ZACHARY Infusion Insulin Human Lispro 0 unit 10/08/20 18:00 10/10/20 05:49 Insulin Lispro 100 Unit/Ml 3 Ml Vial SUBCUT Not Given Q6H [facility] Protocol Morphine Sulfate 4 mg 10/08/20 08:54 Morphine Sulfate 4 Mg/Ml Cartridge IVPUSH Q3H PRN Pain, severe Ondansetron HCl 4 mg 10/08/20 08:54 Ondansetron Hcl 4 Mg/2 Ml Vial IVPUSH Q8H PRN Nausea Pantoprazole Sodium 40 mg 10/08/20 09:00 10/10/20 08:44 Pantoprazole Sodium 40 Mg/10 Ml Vial IV 40 mg DAILY ZACHARY Administration Time Spent With Patient Time: Total time spent is greater than 50% in coordination of care (as documented) at patient's floor/unit and/or counseling patient: Time with patient: 15 - 24 minutes Procedures Date of Service Date of Service: 10/10/20 Quality Stroke Does the patient have a stroke diagnosis?: No VTE Prior VTE?: No VTE Risk Level:: Surgical - moderate VTE Device Contraindication: N/A - Device Ordered VTE Drug Contraindication: Treatment Not Indicated
[2020-10-10 11:05] VITALS: BP 148/69; PULSE 69; RESP 17; TEMP 36.2; O2SAT 99
[2020-10-10 11:25] LABS: Glucose, Whole Blood 92 mg/dL (60-115)
[2020-10-10 15:42] VITALS: BP 162/75; PULSE 80; RESP 20; TEMP 36.4; O2SAT 99
[2020-10-10 17:43] LABS: Glucose, Whole Blood 89 mg/dL (60-115)
[2020-10-10 19:59] VITALS: BP 180/70; PULSE 85; RESP 20; TEMP 36.6; O2SAT 99
[2020-10-10] MEDS: VerapamiL HCL SR 120 MG TABLET.ER 240 MG PO (20:39)
[2020-10-11] VITALS: BP 144/77; PULSE 96; RESP 16; TEMP 36.1; O2SAT 95
[2020-10-11] MEDS: Piperacillin Sodium/Tazobactam 3.375 GM in 0.9 % Sodium Chloride 50 ML IV ×4 (03:17→21:18)
[2020-10-11 03:55] VITALS: BP 136/70; PULSE 80; RESP 16; TEMP 36.4; O2SAT 97
[2020-10-11 05:30] LABS: Glucose, Whole Blood 98 mg/dL (60-115)
[2020-10-11 05:55] LABS: Glucose, Whole Blood 95 mg/dL (60-115)
[2020-10-11 07:17] VITALS: BP 159/68; PULSE 78; RESP 18; TEMP 36.7; O2SAT 99
[2020-10-11] MEDS: Pantoprazole Sodium 40 MG/10 ML VIAL IV (07:44)
--- NOTE | 2020-10-11 09:22 | PM.PNGS ---
Subjective Subjective Date of Service: 10/11/20 Interval history: Says he feels well Passing flatus Denies severe pain Physical Exam Vital Signs: Vital Signs: Last Vital Signs Temp 98.0 F 10/11/20 07:17 Pulse 78 10/11/20 07:17 Resp 18 10/11/20 07:17 BP 159/68 H 10/11/20 07:17 Pulse Ox 99 10/11/20 07:17 Body Mass Index 30.7 Laboratory Results - last 24 hr 10/10/20 10/10/20 10/11/20 11:18 17:40 00:03 POC Glucose 92 89 98 10/11/20 05:52 POC Glucose 95 Const: Other: Looks well, comfortable, ambulating Resp: Effort & Inspection: normal respiratory effort Cardio: Rate: regular rate GI: Other: Soft, dressings dry, NG tube in place, PONCE drain with scanty output, clear serous Progress Note: A&P Assessment and plan (1) Perforated ulcer of intestine: Status: Acute Assessment and Plan: Looks well Will DC NG tube Start sips of clear liquids today Continue to ambulate Doing well postop Continue PPI Fall Risk Details Current Medications: Current Medications Generic Name Dose Route Start Last Admin Trade Name Freq PRN Reason Stop Dose Admin Lactated Ringer's 1,000 mls @ 100 mls/hr 10/08/20 08:54 10/11/20 05:59 Lr IVCONT Not Given .Q10H ZACHARY Piperacillin Sod/Tazobactam 50 mls @ 100 mls/hr 10/08/20 08:54 10/11/20 08:24 Sod 3.375 gm/ Sodium Chloride IV Infused Q6H ZACHARY Infusion Acetaminophen 1,000 mg in 100 mls @ 400 mls/hr 10/08/20 11:15 10/11/20 05:59 Ofirmev IV Infused Q6H ZACHARY Infusion Insulin Human Lispro 0 unit 10/08/20 18:00 10/11/20 05:59 Insulin Lispro 100 Unit/Ml 3 Ml Vial SUBCUT Not Given Q6H [facility] Protocol Morphine Sulfate 4 mg 10/08/20 08:54 Morphine Sulfate 4 Mg/Ml Cartridge IVPUSH Q3H PRN Pain, severe Ondansetron HCl 4 mg 10/08/20 08:54 Ondansetron Hcl 4 Mg/2 Ml Vial IVPUSH Q8H PRN Nausea Pantoprazole Sodium 40 mg 10/08/20 09:00 10/11/20 07:44 Pantoprazole Sodium 40 Mg/10 Ml Vial IV 40 mg DAILY ZACHARY Administration Verapamil HCl 240 mg 10/11/20 09:00 Verapamil Hcl Sr 240 Mg Tablet.Er PO DAILY ZACHARY Protocol Time Spent With Patient Time: Total time spent is greater than 50% in coordination of care (as documented) at patient's floor/unit and/or counseling patient: Time with patient: 15 - 24 minutes Procedures Date of Service Date of Service: 10/11/20 Quality Stroke Does the patient have a stroke diagnosis?: No VTE Prior VTE?: No VTE Risk Level:: Surgical - moderate VTE Device Contraindication: N/A - Device Ordered VTE Drug Contraindication: Treatment Not Indicated
[2020-10-11] MEDS: VerapamiL HCL SR 240 MG TABLET.ER PO (10:18)
[2020-10-11] MEDS: Lactated Ringers 1,000 ML 100 ML IVCONT ×2 (10:21→21:18)
[2020-10-11 11:18] VITALS: BP 156/68; PULSE 73; RESP 17; TEMP 36.3; O2SAT 98
[2020-10-11] MEDS: Insulin Lispro 100 UNIT/ML 3 ML VIAL SUBCUT (11:43)
[2020-10-11 11:55] LABS: Glucose, Whole Blood 190 mg/dL (60-115)
[2020-10-11 15:19] VITALS: BP 155/71; PULSE 66; RESP 16; TEMP 36.6; O2SAT 100
[2020-10-11 16:57] LABS: Glucose, Whole Blood 109 mg/dL (60-115)
[2020-10-11 18:53] VITALS: BP 131/65; PULSE 65; RESP 17; TEMP 36.7; O2SAT 98
[2020-10-11 20:40] LABS: Glucose, Whole Blood 147 mg/dL (60-115)
[2020-10-11 23:46] LABS: Glucose, Whole Blood 127 mg/dL (60-115)
[2020-10-12] VITALS (7 sets, daily range): BP systolic 141–172; BP diastolic 64–87; PULSE 67–76; RESP 15–17; TEMP 36.2–37.4; O2SAT 97–99
[2020-10-12] MEDS: Piperacillin Sodium/Tazobactam 3.375 GM in 0.9 % Sodium Chloride 50 ML IV ×4 (03:25→21:46)
[2020-10-12 06:16] LABS: Glucose, Whole Blood 124 mg/dL (60-115)
[2020-10-12] MEDS: Pantoprazole Sodium 40 MG/10 ML VIAL IV (08:14)
[2020-10-12] MEDS: VerapamiL HCL SR 240 MG TABLET.ER PO (08:14)
--- NOTE | 2020-10-12 09:55 | PM.PNGS ---
Subjective Subjective Date of Service: 10/12/20 Interval history: He feels well today denies severe pain tolerating liquids no nausea passing flatus Physical Exam Vital Signs: Vital Signs: Last Vital Signs Temp 99.3 F 10/12/20 07:20 Pulse 71 10/12/20 07:20 Resp 17 10/12/20 07:20 BP 172/76 H 10/12/20 07:20 Pulse Ox 97 10/12/20 07:20 Body Mass Index 30.7 Laboratory Results - last 24 hr 10/11/20 10/11/20 10/11/20 11:22 16:52 20:26 POC Glucose 190 H 109 147 H 10/11/20 10/12/20 23:42 06:11 POC Glucose 127 H 124 H Const: Other: looks well, sitting up chair Resp: Effort & Inspection: normal respiratory effort GI: Other: incision clean and dry, PONCE drain clear serous and scanty Palpation (GI): Soft to palpation and not firm Progress Note: A&P Assessment and plan (1) Perforated ulcer of intestine: Status: Acute Assessment and Plan: status post repair with omental patch doing very well clinically looks good advance diet possible DC home Fall Risk Details Current Medications: Current Medications Generic Name Dose Route Start Last Admin Trade Name Freq PRN Reason Stop Dose Admin Lactated Ringer's 1,000 mls @ 100 mls/hr 10/08/20 08:54 10/12/20 07:29 Lr IVCONT Infused .Q10H ZACHARY Infusion Piperacillin Sod/Tazobactam 50 mls @ 100 mls/hr 10/08/20 08:54 10/12/20 08:51 Sod 3.375 gm/ Sodium Chloride IV Infused Q6H ZACHARY Infusion Acetaminophen 1,000 mg in 100 mls @ 400 mls/hr 10/08/20 11:15 10/12/20 05:49 Ofirmev IV Infused Q6H ZACHARY Infusion Insulin Human Lispro 0 unit 10/08/20 18:00 10/12/20 06:14 Insulin Lispro 100 Unit/Ml 3 Ml Vial SUBCUT Not Given Q6H ZACHARY Protocol Morphine Sulfate 4 mg 10/08/20 08:54 Morphine Sulfate 4 Mg/Ml Cartridge IVPUSH Q3H PRN Pain, severe Ondansetron HCl 4 mg 10/08/20 08:54 Ondansetron Hcl 4 Mg/2 Ml Vial IVPUSH Q8H PRN Nausea Pantoprazole Sodium 40 mg 10/08/20 09:00 10/12/20 08:14 Pantoprazole Sodium 40 Mg/10 Ml Vial IV 40 mg DAILY ZACHARY Administration Verapamil HCl 240 mg 10/11/20 09:00 10/12/20 08:14 Verapamil Hcl Sr 240 Mg Tablet.Er PO 240 mg DAILY ZACHARY Administration Protocol Time Spent With Patient Time: Total time spent is greater than 50% in coordination of care (as documented) at patient's floor/unit and/or counseling patient: Time with patient: 15 - 24 minutes Procedures Date of Service Date of Service: 10/12/20 Quality Stroke Does the patient have a stroke diagnosis?: No VTE Prior VTE?: No VTE Risk Level:: Surgical - moderate VTE Device Contraindication: N/A - Device Ordered VTE Drug Contraindication: Treatment Not Indicated
[2020-10-12 11:22] LABS: Glucose, Whole Blood 172 mg/dL (60-115)
[2020-10-12] MEDS: Insulin Lispro 100 UNIT/ML 3 ML VIAL SUBCUT (11:53)
[2020-10-12 16:37] LABS: Glucose, Whole Blood 140 mg/dL (60-115)
[2020-10-13 00:13] LABS: Glucose, Whole Blood 118 mg/dL (60-115)
[2020-10-13] MEDS: Piperacillin Sodium/Tazobactam 3.375 GM in 0.9 % Sodium Chloride 50 ML IV ×2 (02:55→09:30)
[2020-10-13 03:13] VITALS: BP 149/78; PULSE 66; RESP 15; TEMP 36.6; O2SAT 98
[2020-10-13 05:45] LABS: Glucose, Whole Blood 121 mg/dL (60-115)
[2020-10-13 07:19] VITALS: BP 178/95; PULSE 81; RESP 20; TEMP 36.4; O2SAT 97
--- NOTE | 2020-10-13 08:46 | MHC.CM.PN ---
dc plan is home no svcs. vs. home c vna. cm to cont. to follow.
[2020-10-13] MEDS: Pantoprazole Sodium 40 MG/10 ML VIAL IV (09:30)
[2020-10-13] MEDS: VerapamiL HCL SR 240 MG TABLET.ER PO (09:31)
--- NOTE | 2020-10-13 09:52 | PM.PNGS ---
Subjective Subjective Date of Service: 10/13/20 Interval history: Feels well Tolerating diet Denies pain Says he is ready to go home Physical Exam Vital Signs: Vital Signs: Last Vital Signs Temp 97.5 F 10/13/20 07:19 Pulse 81 10/13/20 07:19 Resp 20 10/13/20 07:19 BP 178/95 H 10/13/20 07:19 Pulse Ox 97 10/13/20 07:19 Body Mass Index 30.7 Const: General: comfortable and no acute distress GI: Other: Incision clean and dry, PONCE drain clear, scanty Palpation (GI): Soft to palpation, not firm, nontender and no guarding Progress Note: A&P Assessment and plan (1) Perforated ulcer of intestine: Status: Acute Assessment and Plan: Status post over-sew, mental patch Doing well Looks comfortable Good GI function PONCE drain DC Given discharge instructions Follow-up in the office Fall Risk Details Current Medications: Current Medications Generic Name Dose Route Start Last Admin Trade Name Freq PRN Reason Stop Dose Admin Piperacillin Sod/Tazobactam 50 mls @ 100 mls/hr 10/08/20 08:54 10/13/20 09:30 Sod 3.375 gm/ Sodium Chloride IV 100 mls/hr Q6H ZACHARY Administration Acetaminophen 1,000 mg in 100 mls @ 400 mls/hr 10/08/20 11:15 10/13/20 05:31 Ofirmev IV Infused Q6H ZACHARY Infusion Insulin Human Lispro 0 unit 10/08/20 18:00 10/13/20 05:46 Insulin Lispro 100 Unit/Ml 3 Ml Vial SUBCUT Not Given Q6H ZACHARY Protocol Ondansetron HCl 4 mg 10/08/20 08:54 Ondansetron Hcl 4 Mg/2 Ml Vial IVPUSH Q8H PRN Nausea Pantoprazole Sodium 40 mg 10/08/20 09:00 10/13/20 09:30 Pantoprazole Sodium 40 Mg/10 Ml Vial IV 40 mg DAILY ZACHARY Administration Verapamil HCl 240 mg 10/11/20 09:00 10/13/20 09:31 Verapamil Hcl Sr 240 Mg Tablet.Er PO 240 mg DAILY ZACHARY Administration Protocol Time Spent With Patient Time: Total time spent is greater than 50% in coordination of care (as documented) at patient's floor/unit and/or counseling patient: Time with patient: 15 - 24 minutes Procedures Date of Service Date of Service: 10/13/20 Quality Stroke Does the patient have a stroke diagnosis?: No VTE Prior VTE?: No VTE Risk Level:: Surgical - moderate VTE Device Contraindication: N/A - Device Ordered VTE Drug Contraindication: Treatment Not Indicated
--- NOTE | 2020-10-23 14:26 | PM.DS ---
DS: Providers Provider Date of Service: 10/13/20 Date of admission: 10/08/20 08:30 Primary care physician: Jessica Cha MD DS: Diagnosis Discharge Diagnosis (1) Perforated ulcer of intestine: Status: Resolved DS: Medications Discharge Medications Home Medications: Home Medications Medication Instructions Recorded Confirmed sildenafil 100 mg tablet [id number] mg PO DAILY PRN 04/17/20 10/23/20 Previous Rx's Medication Instructions Recorded lancets 28 gauge #100 ea 07/29/20 fluticasone propionate 50 1 spray INTRANASAL DAILY #16 ml 08/18/20 mcg/actuation nasal spray,suspension lisinopril 10 mg tablet 10 mg PO DAILY 30 Days #30 tab 08/18/20 cyclobenzaprine 10 mg PO TID #10 tab 08/21/20 omeprazole magnesium [Prilosec OTC] 20 mg PO BID #60 tab 10/13/20 oxycodone-acetaminophen [Percocet] 1 - 2 tab PO Q4-6H PRN #30 tab 10/13/20 blood sugar diagnostic 1 strip MISCELLANEOUS TID 30 Days 10/16/20 #100 strip hydrochlorothiazide 12.5 mg tablet 12.5 mg PO DAILY 90 Days #90 tab 10/16/20 metformin 500 mg tablet 500 mg PO BID #180 tab 10/16/20 simvastatin 40 mg tablet 40 mg PO QPM #90 tab 10/17/20 cephalexin 500 mg tablet 500 mg PO BID 10 Days #20 tab 10/18/20 DS: Summary Hospital Course Hospital Course: 60-year-old male admitted on 10/08/2020 for abdominal pain. His CAT scan showed free air with what appeared to be a perforated gastric ulcer. He therefore underwent emergency me, with over-sew of a perforated gastric ulcer, along with omental patching with Dr. Perez. He tolerated procedure well. He had NG tube in place in a PONCE drain. He was kept on IV antibiotics with Zosyn. His NG tube was discontinued on his 2nd postop day. He was started on clear liquids which he tolerated well. His diet was therefore slowly advance. We continued do well with good GI functions. He was stable throughout his hospital stay. He was therefore discharged on 10/13/2020. His PONCE drain was removed prior to discharge. At the time of his discharge, he was tolerating regular diet and had good GI functions. Time spent discussing smoking cessation with patient: 3 to 10 minutes Time Spent with Patient Time attestation: Total time spent providing and/or coordinating discharge services: Discharge coordination time: Less than 30 minutes Quality: Stroke Does the patient have a stroke diagnosis?: No Reason for No Anti-thrombotic at DC: N/A - Med Ordered Reason for No Anticoagulant at DC: N/A - Med Ordered Physical Exam Vital Signs: Vital Signs: Last Vital Signs Temp 97.5 F 10/13/20 07:19 Pulse 81 10/13/20 07:19 Resp 20 10/13/20 07:19 BP 178/95 H 10/13/20 07:19 Pulse Ox 97 10/13/20 07:19 Body Mass Index 30.7 Const: General: comfortable and no acute distress Orientation/consciousness: patient oriented x3 Neck: Neck: Yes no lymphadenopathy Resp: Auscultation: clear to auscultation bilaterally Cardio: Rhythm: regular rhythm GI: Other: Incision healing well, javan intact Palpation (GI): Soft to palpation, nontender and no guarding Neuro: General: patient oriented x3 DS: Data Data Completed and Pending Completed studies during hospitalization [Text1]: Procedures Supplement Stomach, Pylorus with Autologous Tissue Substitute, Open Approach (10/08/20) Discharge Plan Discharge Patient Disposition: Home, Self-Care Discharge Diagnosis: perforated ulcer Referrals: Devan RM [Outside] - 1 Week Bradley Beard MD [Physician] - 1 Week Jessica Grajeda MD [Primary Care Provider] - 1 Week Discharge Medications: New oxycodone-acetaminophen [Percocet] 5-325 mg tablet 1 - 2 tab PO Q4-6H PRN (Reason: pain) Qty: 30 RF: 0 omeprazole magnesium [Prilosec OTC] 20 mg tablet,delayed release (DR/EC) 20 mg PO BID Qty: 60 RF: 2 Continued (DME) lancets 28 gauge misc See Rx Instructions ea topical DAILY Qty: 100 RF: 11 lisinopril 10 mg tablet 10 mg PO DAILY 30 Days Qty: 30 RF: 6 fluticasone propionate 50 mcg/actuation spray,suspension 1 spray intranasal DAILY Qty: 16 RF: 4 cyclobenzaprine 10 mg tablet 10 mg PO TID Qty: 10 RF: 0 sildenafil 100 mg tablet [id number] mg PO DAILY PRNRF: 0 Discontinued naproxen [Naprosyn] 500 mg tablet 500 mg PO BID Qty: 20 RF: 0 meloxicam 15 mg tablet 15 mg PO DAILY RF: 0 No Action blood sugar diagnostic [FreeStyle Lite Strips] Strip 1 strip miscellaneous TID 30 Days Qty: 100 RF: 6 metformin 500 mg tablet 500 mg PO BID Qty: 180 RF: 3 hydrochlorothiazide 12.5 mg tablet 12.5 mg PO DAILY 90 Days Qty: 90 RF: 1 simvastatin 40 mg tablet 40 mg PO QPM Qty: 90 RF: 3 cephalexin 500 mg tablet 500 mg PO BID 10 Days Qty: 20 RF: 0 Discharge Orders: Discharge Order (Routine); Ordered 10/13/20 Ordered By: Bradley Beard Activity on Discharge: No heavy lifting Stand Alone Forms: Patient Portal Discharge page Activity Restrictions/Additional Instructions: If the incision area is tender, you may apply an ice pack for short intervals (No more than 20 minutes on, followed by at least 20 minutes off). Do not apply heat. Do not use creams, lotions, or topical antibiotics unless instructed to do so by your surgeon. These can cause infection or allergic reaction. OK to shower No lifting more than 20 lbs No strenuous activities Call the office for follow-up in 2 weeks - with Dr. Beard Call Your Doctor If: -Your temperature exceeds 101.5? F -You experience excessive pain or swelling -You have an unexpected reaction to medication -You have excessive bleeding -You experience continued vomiting/nausea -Your incision begins to separate -Your incision shows signs of infection such as increased redness, swelling, excessive pain, drainage (light blood or clear fluid is normal) or heat Care Plan Goals: pain control avoid NSAIDs control blood sugar control hypertension Health Concerns: diabetes hypertension Plan of Treatment: oral pain meds PPI no NSAIDs control DM control HTN Assessment: doing well postop Discharge Date/Time: 10/13/20 15:06
== END 2020-10-13 15:06 | disposition home or self-care (01) | DRG 222 ==
LOC: HO.ED 10-08 05:59 → HO.SSS 10-08 08:09 → HO.S3 10-08 08:31
PROVIDERS: Admitting Provider Surgery; Emergency Provider Emergency Medicine Emergency Medical Services; PCP Internal Medicine; Visit Provider Surgery
PROC: (CPT 49000; principal; 2020-10-08 05:10)
DX: K25.5 Chronic or unspecified gastric ulcer with perforation (principal); E11.9 Type 2 diabetes mellitus without complications; E78.5 Hyperlipidemia, unspecified; Z79.52 Long term (current) use of systemic steroids; Z79.84 Long term (current) use of oral hypoglycemic drugs; Z79.899 Other long term (current) drug therapy
CPT/HCPCS: 36415; 71045; 74177; 80048; 80076; 81003; 82947; 83605; 83690; 84484; 85025; 85027; 86850; 86900; 86901; 87040; 87071; 87077; 87205; 87635; 93005; 99024; 99285; J0131; J0690; J0696; J2405; J2543; J3010; Q9967

== ENCOUNTER → 2020-10-23 13:48 | Outpatient (BNVA) | payer OTHER, SELFPAY | PROVIDERS: PCP Internal Medicine; Referring Provider Internal Medicine; Visit Provider Surgery | DX: K25.5 Chronic or unspecified gastric ulcer with perforation (principal); E11.9 Type 2 diabetes mellitus without complications; E78.5 Hyperlipidemia, unspecified; I10 Essential (primary) hypertension; Z79.84 Long term (current) use of oral hypoglycemic drugs; Z79.899 Other long term (current) drug therapy | CPT/HCPCS: 99212 ==

== ENCOUNTER → 2020-11-03 08:25 | Outpatient (BNVA) | payer OTHER, SELFPAY | PROVIDERS: PCP Internal Medicine; Visit Provider Urology | DX: N40.0 Benign prostatic hyperplasia without lower urinary tract symptoms (principal); E11.69 Type 2 diabetes mellitus with other specified complication; N52.1 Erectile dysfunction due to diseases classified elsewhere | CPT/HCPCS: 99212 ==

== ENCOUNTER 2021-01-22 08:31 | Outpatient (REF) | payer OTHER, SELFPAY ==
[2021-01-22 08:45] LABS: MANUAL DIFF FLAG NO
[2021-01-22 09:16] LABS: Basophils Percent Auto 1.2 % (0-2); Eosinophils Absolute Auto 0.1 X10*3/uL (0.0-0.4); Eosinophils Percent Auto 3.2 % (0-4); Hematocrit 38.9 % (42-52); Hemoglobin 12.3 g/dl (14.0-18.0); Imm Gran Abs Auto 0.01 X10*3/uL (0.00-0.03); Imm Gran Pct Auto 0.3 % (0.0-0.4); Lymphocytes Absolute Auto 1.1 X10*3/uL (1.2-4.9); Lymphocytes Percent Auto 33.1 % (20-40); Mean Corpuscular HGB Conc 31.6 g/dl (31.0-36.0); Mean Corpuscular Hemoglobin 26.6 pg (27.0-33.0); Mean Platelet Volume 10.2 fL (9.4-12.4); Monocytes Absolute Auto 0.3 X10*3/uL (0.1-1.2); Monocytes Percent Auto 9.3 % (2-11); Neutrophils Absolute Auto 1.8 X10*3/uL (2.0-8.3); Neutrophils Percent Auto 52.9 % (45-73); Platelet Count 269 X10*3/uL (160-400); Red Blood Count 4.63 X10*6/uL (4.60-5.80); Red Cell Distribution Width 17.2 % (11.0-16.0); White Blood Count 3.4 X10*3/uL (4.8-10.8)
[2021-01-22 09:37] LABS: Alanine Aminotransferase 19 U/L (0-40); Alkaline Phosphatase 83 U/L (39-117); Anion Gap 10 (12-20); Aspartate Amino Transferase 22 U/L (5-37); Bilirubin Total 0.7 mg/dL (0.0-1.0); Blood Urea Nitrogen 10 mg/dL (9-16); Calcium 9.5 mg/dL (8.4-10.2); Carbon Dioxide 28 mmol/L (22-29); Chloride 105 mmol/L (96-108); Cholesterol 227 mg/dL; Estimated Glomerular Filt Rate > 60; Glucose Fasting 194 mg/dL (60-99); HDL Cholesterol 53 mg/dL; LDL Cholesterol Calculated 152 mg/dl; Potassium 4.4 mmol/L (3.3-5.1); Sodium 139 mmol/L (135-145); Total Protein 7.4 g/dL (6.5-8.0); Triglycerides 114 mg/dL
[2021-01-22 09:45] LABS: Creatinine Urine 188.32 mg/dL; Microalbum/Creatinine Ratio Ur 4.2 ug/mg cr
[2021-01-22 09:58] LABS: Prostate Specific Antigen 0.32 ng/mL (<0.05-4.0)
== END 2021-01-22 08:32 | disposition home or self-care (01) ==
LOC: HO.LAB 08:31
PROVIDERS: Urology; PCP Internal Medicine; Visit Provider Internal Medicine
DX: N13.8 Other obstructive and reflux uropathy (principal); E11.9 Type 2 diabetes mellitus without complications; D64.9 Anemia, unspecified; E78.5 Hyperlipidemia, unspecified; N40.1 Benign prostatic hyperplasia with lower urinary tract symptoms
CPT/HCPCS: 36415; 80053; 80061; 82043; 84153; 85025

== ENCOUNTER → 2021-02-02 09:18 | Outpatient (BNVA) | payer OTHER, SELFPAY | PROVIDERS: PCP Internal Medicine; Visit Provider Urology ==

== ENCOUNTER → 2021-08-14 08:43 | Outpatient (BNVA) | payer OTHER, SELFPAY | PROVIDERS: PCP Internal Medicine; Visit Provider Urology | DX: E11.69 Type 2 diabetes mellitus with other specified complication (principal); N52.1 Erectile dysfunction due to diseases classified elsewhere | CPT/HCPCS: 51798; 99212 ==

== ENCOUNTER 2021-08-29 07:59 | Outpatient (REF) | payer OTHER, SELFPAY ==
[2021-08-29 08:42] LABS: MANUAL DIFF FLAG NO
[2021-08-29 09:37] LABS: Basophils Absolute Auto 0.1 X10*3/uL (0.0-0.2); Basophils Percent Auto 1.6 % (0-2); Eosinophils Absolute Auto 0.2 X10*3/uL (0.0-0.4); Eosinophils Percent Auto 5.3 % (0-4); Hematocrit 40.8 % (42.0-52.0); Hemoglobin 13.2 g/dl (14.0-18.0); Imm Gran Abs Auto 0.01 X10*3/uL (0.00-0.03); Imm Gran Pct Auto 0.3 % (0.0-0.4); Lymphocytes Absolute Auto 1.2 X10*3/uL (1.2-4.9); Lymphocytes Percent Auto 38.7 % (20-40); Mean Corpuscular HGB Conc 32.4 g/dl (31.0-36.0); Mean Corpuscular Hemoglobin 28.9 pg (27.0-33.0); Mean Corpuscular Volume 89.5 fL (80.0-98.0); Mean Platelet Volume 10.8 fL (9.4-12.4); Monocytes Absolute Auto 0.4 X10*3/uL (0.1-1.2); Neutrophils Absolute Auto 1.4 x10*3/uL (2.0-8.3); Neutrophils Percent Auto 43.1 % (45-73); Platelet Count 206 X10*3/uL (160-400); Red Blood Count 4.56 X10*6/uL (4.60-5.80); Red Cell Distribution Width 13.7 % (11.0-16.0); White Blood Count 3.2 X10*3/uL (4.8-10.8)
[2021-08-29 10:22] LABS: Alanine Aminotransferase 17 U/L (0-40); Albumin Level 4.2 g/dL (3.5-5.0); Alkaline Phosphatase 64 U/L (39-117); Anion Gap 11 (12-20); Aspartate Amino Transferase 23 U/L (5-37); Bilirubin Total 0.6 mg/dL (0.0-1.0); Blood Urea Nitrogen 15 mg/dL (9-16); Calcium 9.5 mg/dL (8.4-10.2); Carbon Dioxide 27 mmol/L (22-29); Chloride 106 mmol/L (96-108); Cholesterol 207 mg/dL; Estimated Glomerular Filt Rate > 60; Glucose Fasting 166 mg/dL (60-99); HDL Cholesterol 50 mg/dL; Iron 148 mcg/dL (45-160); LDL Cholesterol Calculated 132 mg/dl; Percent Iron Saturation 39 % (15-50); Potassium 4.7 mmol/L (3.3-5.1); Sodium 139 mmol/L (135-145); Total Iron Binding Capacity 378 mcg/dL (228-428); Total Protein 7.3 g/dL (6.5-8.0); Triglycerides 126 mg/dL; Unsaturated Iron Binding 230 ug/dL
[2021-08-29 12:02] LABS: Microalbum/Creatinine Ratio Ur 3.2 ug/mg cr
[2021-09-03 13:57] LABS: Vitamin D 25-OH, D2 <4 ng/mL; Vitamin D 25-OH, D3 19 ng/mL; Vitamin D 25-OH, Total 19 ng/mL (30-100)
== END 2021-08-29 08:00 | disposition home or self-care (01) ==
LOC: HO.LAB 07:59
PROVIDERS: PCP Internal Medicine; Visit Provider Internal Medicine
DX: E11.9 Type 2 diabetes mellitus without complications (principal); D64.9 Anemia, unspecified; E78.5 Hyperlipidemia, unspecified; E55.9 Vitamin D deficiency, unspecified
CPT/HCPCS: 36415; 80053; 80061; 82043; 82306; 83540; 85025

== ENCOUNTER 2021-11-12 07:23 | Outpatient (REF) | payer OTHER, SELFPAY ==
[2021-11-12 07:39] LABS: MANUAL DIFF FLAG NO
[2021-11-12 08:01] LABS: Basophils Percent Auto 1.2 % (0-2); Eosinophils Absolute Auto 0.1 X10*3/uL (0.0-0.4); Eosinophils Percent Auto 2.8 % (0-4); Hematocrit 39.9 % (42.0-52.0); Hemoglobin 13.3 g/dl (14.0-18.0); Imm Gran Abs Auto 0.01 X10*3/uL (0.00-0.03); Imm Gran Pct Auto 0.3 % (0.0-0.4); Lymphocytes Absolute Auto 1.1 X10*3/uL (1.2-4.9); Lymphocytes Percent Auto 32.4 % (20-40); Mean Corpuscular HGB Conc 33.3 g/dl (31.0-36.0); Mean Corpuscular Hemoglobin 29.5 pg (27.0-33.0); Mean Corpuscular Volume 88.5 fL (80.0-98.0); Monocytes Absolute Auto 0.4 X10*3/uL (0.1-1.2); Monocytes Percent Auto 11.3 % (2-11); Neutrophils Absolute Auto 1.7 x10*3/uL (2.0-8.3); Platelet Count 233 X10*3/uL (160-400); Red Blood Count 4.51 X10*6/uL (4.60-5.80); Red Cell Distribution Width 13.2 % (11.0-16.0); White Blood Count 3.3 X10*3/uL (4.8-10.8)
[2021-11-12 08:33] LABS: Alanine Aminotransferase 26 U/L (0-40); Albumin Level 4.1 g/dL (3.5-5.0); Alkaline Phosphatase 57 U/L (39-117); Anion Gap 14 (12-20); Aspartate Amino Transferase 28 U/L (5-37); Bilirubin Total 0.7 mg/dL (0.0-1.0); Blood Urea Nitrogen 13 mg/dL (9-16); Calcium 9.3 mg/dL (8.4-10.2); Carbon Dioxide 27 mmol/L (22-29); Chloride 102 mmol/L (96-108); Cholesterol 171 mg/dL; Estimated Glomerular Filt Rate > 60; Glucose Fasting 180 mg/dL (60-99); HDL Cholesterol 56 mg/dL; Iron 151 mcg/dL (45-160); LDL Cholesterol Calculated 95 mg/dl; Percent Iron Saturation 39 % (15-50); Potassium 4.6 mmol/L (3.3-5.1); Sodium 138 mmol/L (135-145); Total Iron Binding Capacity 386 mcg/dL (228-428); Total Protein 7.3 g/dL (6.5-8.0); Triglycerides 103 mg/dL; Unsaturated Iron Binding 235 ug/dL
[2021-11-12 08:56] LABS: Vitamin D 25-OH Total 25.5 ng/mL (>30)
[2021-11-12 09:08] LABS: Creatinine Urine 358.06 mg/dL
== END 2021-11-12 07:24 | disposition home or self-care (01) ==
LOC: HO.LAB 07:23
PROVIDERS: PCP Internal Medicine; Visit Provider Internal Medicine
DX: E11.9 Type 2 diabetes mellitus without complications (principal); D64.9 Anemia, unspecified; E78.5 Hyperlipidemia, unspecified; D72.819 Decreased white blood cell count, unspecified; E55.9 Vitamin D deficiency, unspecified
CPT/HCPCS: 36415; 80053; 80061; 82043; 82306; 83540; 85025

== ENCOUNTER → 2022-02-14 08:34 | Outpatient (BNVA) | payer OTHER, SELFPAY | PROVIDERS: PCP Internal Medicine; Visit Provider Urology | DX: E11.69 Type 2 diabetes mellitus with other specified complication (principal); N52.1 Erectile dysfunction due to diseases classified elsewhere | CPT/HCPCS: 99212 ==

== ENCOUNTER 2023-03-05 02:30 | Emergency (ER) | payer OTHER, SELFPAY ==
[2023-03-05 02:35] VITALS: BP 127/82; PULSE 75; RESP 18; TEMP 36.6; O2SAT 100; BMI 31.7
--- NOTE | 2023-03-05 03:17 | ED_ITS ---
HPI - General Adult General Chief complaint: General Medical Stated complaint: High Blood Pressure Time Seen by Provider: 03/05/23 03:06 Source: patient Mode of arrival: ambulatory Limitations: no limitations History of Present Illness HPI narrative: 62 yo male with PMH of HTN, HLD, DM here with c/o waking up with bad dream and coming to ED but now he denies everything to me and states he feels better he has no complaints and wants to go home. He wants nothing else. He states he is not in crisis. MD complaint: ?bad dream Onset (ago): minute(s) Radiation: non-radiation Severity: moderate Relieving factors: none Exacerbating factors: none Associated symptoms: denies other symptoms Treatments prior to arrival: none Related Data Previous Rx's Medication Instructions Recorded lancets 28 gauge #100 ea 07/29/20 fluticasone propionate 50 1 spray intranasal DAILY #16 mL 08/18/20 mcg/actuation nasal spray,suspension blood sugar diagnostic (FreeStyle 1 strip miscellaneous TID 30 days 04/10/21 Lite Strips) #100 strips dulaglutide 0.75 mg/0.5 mL 0.75 mg (0.5 mL) subcut QWEEK 90 01/22/22 subcutaneous pen injector days #6.5 mL (Trulicity) tadalafil 10 mg tablet 10 mg PO DAILY 90 days #90 tabs 02/14/22 tadalafil 20 mg tablet 20 mg PO ONCE PRN sexual activity 02/14/22 30 days #30 tabs blood-glucose meter (FreeStyle #1 ea 07/18/22 Lite Meter kit) chlorthalidone 25 mg tablet 25 mg PO DAILY 90 days #90 tabs 01/16/23 cholecalciferol (vitamin D3) 25 25 mcg PO DAILY 90 days #90 caps 01/16/23 mcg (1,000 unit) capsule lisinopril 40 mg tablet 40 mg PO DAILY 90 days #90 tabs 01/16/23 metformin 1,000 mg tablet 1,000 mg PO BID 90 days #180 tabs 01/16/23 simvastatin 80 mg tablet 80 mg PO BEDTIME 90 days #90 tabs 01/16/23 Allergies Allergy/AdvReac Type Severity Reaction Status Date / Time No Known Allergies Allergy Verified 03/05/23 02:35 [No Known Allergies*] Review of Systems Review of Systems: Constitutional : No Fever, No Chills ENT/Mouth : No Ear Pain, No Nasal Congestion, No sore throat Eyes: No Eye Pain, No Swelling, No Redness Cardiovascular : No Chest Pain, No SOB Respiratory : No Cough, No Sputum, No Dyspnea Gastrointestinal : No Nausea, No Vomiting, No Diarrhea, No Hematochezia, No Melena Genitourinary : No Dysuria, No Urinary Frequency, No Hematuria Musculoskeletal : No Myalgias Skin : No Skin Lesions, No rash Neuro : No Weakness, No Numbness, No Paresthesias, No Dizziness, No Headache Psych : positive Anxiety, noDepression, no SI/HI All other systems reviewed and are negative PMFSH Past Medical History Attestation statement: The following information was validated with the patient. Source: old records reviewed Medical History GERD (gastroesophageal reflux disease) Perforated gastric ulcer Leukopenia Leg edema Lipoma of extremity Essential hypertension Diabetes mellitus Dyslipidemia Surgical History History of exploratory laparotomy History of intestinal surgery Family History Family History Father Diabetes Hypertension CVD (cardiovascular disease) Mother Stroke Diabetes Hypertension Brother No problems noted. Sister No problems noted. Family/Other Mental health disorder Social History Social History Household Members: Family Housing: House Alcohol intake: current Alcohol intake frequency: a few times a month Alcohol type: beer Patient Tobacco Use Status: Never used Tobacco e-Cigarette/Vaping Use: Never Used Second Hand Smoke Exposure: No Substance Use Type: Marijuana service: No Current occupational status: disabled Cognitive needs: No Hearing needs: No Vision needs: No Physical Exam ED Vital Signs: Vital Signs - 24 hr 03/05/23 02:35 Temperature 98 F Pulse Rate 75 Respiratory Rate 18 Blood Pressure 127/82 Pulse Oximetry 100 Oxygen Delivery Method Room Air BMI result Body Mass Index 31.7 Appearance: Alert. Oriented X3. No acute distress. Eyes: Pupils equal, round and reactive to light. ENT: Pharynx normal. Neck: Normal inspection. Neck supple. CVS: Normal heart rate and rhythm. Pulses normal. Respiratory: No respiratory distress. Breath sounds normal. Abdomen: Soft and nontender. Skin: Skin warm and dry. Normal skin color. Normal skin turgor. Extremities: No lower extremity edema. No calf ttp Neuro: Oriented X 3. No motor deficit. No sensory deficit. Medical Decision Making Medical Decision Making [facility] Narrative: 62 yo male with PMH of HTN, HLD, DM here with c/o possible nightmare at home and came to ED he has no complaints now I offered a full exam and workup but he declines and states he is fine right now wants nothing wants to go home and he is not in crisis. I used hand scudder. He was told to come back at any time. Differential Diagnosis Differential Diagnoses: The differential diagnosis associated with the presentation includes anxiety, nightmare External Record Review External record reviewed: Inpatient record Tests considered The following testing was considered but not selected: he refused further workup at this time and wants to go home Discharge Plan Discharge Clinical Impression: Normal exam Patient Disposition: Home, Self-Care Instructions: Normal Exam (ED) Additional Instructions: return for chest pain, trouble breathing, confusion, thoughts of self harm or any other concerns. Regrese si tiene dolor en el pecho, dificultad para respirar, confusi?n, pensamientos de autolesi?n o cualquier otra inquietud. Prescriptions: No Action (DME) lancets 28 gauge misc See Rx Instructions topical DAILY Qty: 100 11RF Rx Instructions: As directed fluticasone propionate 50 mcg/actuation spray,suspension 1 spray intranasal DAILY Qty: 16 4RF FreeStyle Lite Strips Strip 1 strip miscellaneous TID 30 Days Qty: 100 6RF (DME) blood-glucose meter [FreeStyle Lite Meter] Kit See Rx Instructions .Route Qty: 1 0RF Rx Instructions: As directed chlorthalidone 25 mg tablet 25 mg PO DAILY 90 Days Qty: 90 1RF cholecalciferol (vitamin D3) 25 mcg (1,000 unit) capsule 25 mcg PO DAILY 90 Days Qty: 90 1RF lisinopril 40 mg tablet 40 mg PO DAILY 90 Days Qty: 90 1RF metformin 1,000 mg tablet 1,000 mg PO BID 90 Days Qty: 180 1RF simvastatin 80 mg tablet 80 mg PO BEDTIME 90 Days Qty: 90 1RF Trulicity 0.75 mg/0.5 mL pen injector 0.75 mg subcut QWEEK 90 Days Qty: 6.5 1RF tadalafil 20 mg tablet 20 mg PO ONCE PRN (Reason: sexual activity) 30 Days Qty: 30 0RF Rx Instructions: Use 1 tablet on demand p.r.n. in addition lower daily dose tadalafil 10 mg tablet 10 mg PO DAILY 90 Days Qty: 90 1RF Referrals: Jessica Grajeda MD [Primary Care Provider] - (as needed)
[2023-03-05 03:37] VITALS: BP 150/84; PULSE 70; RESP 18; TEMP 36.7; O2SAT 100
== END 2023-03-05 03:38 | disposition home or self-care (01) ==
PROVIDERS: Emergency Provider Emergency Medicine; PCP Internal Medicine
DX: Z03.89 Encounter for observation for other suspected diseases and conditions ruled out (principal); I10 Essential (primary) hypertension; E11.9 Type 2 diabetes mellitus without complications; E78.5 Hyperlipidemia, unspecified; Z79.85 Long-term (current) use of injectable non-insulin antidiabetic drugs; Z79.899 Other long term (current) drug therapy; Z79.02 Long term (current) use of antithrombotics/antiplatelets
CPT/HCPCS: 99282; 99283

== ENCOUNTER 2023-04-22 09:29 | Outpatient (AMB) | payer MEDICARE, OTHER, SELFPAY ==
--- NOTE | 2023-04-22 10:26 | A.OFFVIS_ITS ---
Intake Intake Visit Reasons: 1Y PVR(Harry seen 2021) Intake Note: Patient is Present for Follow Up Urology Medication:Tadalafil, Antibiotic Allergies: None Blood Thinners: None PVR: 0 Allergies No Known Allergies [No Known Allergies*] Allergy (Verified 03/05/23 02:35) HPI HPI Comments History of Present Illness Details ?Uday SNOWDEN is a very pleasant Togolese speaking male. They are a patient of Dr Cha. They are seen in the office today for the following urologic conditions. - erectile dysfunction - Peyronie's disease Togolese translation provided in office by qualified medical typist Here with new complaint of Peyronie's disease Had stopped ED medications Curvature ventral 2 right side Discussed vacuum pump and injections Will proceed with oral medications Erectile dysfunction:? Good response to tadalafil 10 mg daily ? He presents today for?for continued evaluation and management of erectile dysfunction.? Symptoms have been present for/since?ongoing.? Procedure(s)/Diagnosis causing dysfunction include?diabetes.? Current treatment includes?medications - too expensive ?- switch to generics.? Treatment side effects include?none.? Prior therapies include?oral medications.? At this time he experiences erections?06/16 , are partial and adequate for vaginal penetration, that undergo rapid detumesence after penetration, BLANCHE 8-11 Moderate ED.? Currently they are?in a stable relationship.? Associated problems? hypertension ?Yes ? diabetes ?Yes ? dyslipidemia ?Yes ? Overall he is ?is not satisfied with the current management.? Therapeutic plan includes?maintaining current therapy.? PFSH Medical History GERD (gastroesophageal reflux disease) Perforated gastric ulcer Leukopenia Leg edema Lipoma of extremity Essential hypertension Diabetes mellitus Dyslipidemia Surgical History History of exploratory laparotomy History of intestinal surgery Family History Father Diabetes Hypertension CVD (cardiovascular disease) Mother Stroke Diabetes Hypertension Brother No problems noted. Sister No problems noted. Family/Other Mental health disorder Social History Household Members: Family Housing: House Alcohol intake: current Alcohol intake frequency: a few times a month Alcohol type: beer Patient Tobacco Use Status: Never used Tobacco e-Cigarette/Vaping Use: Never Used Second Hand Smoke Exposure: No Substance Use Type: Marijuana service: No Current occupational status: disabled Cognitive needs: No Hearing needs: No Vision needs: No Review of Systems Const Denies chills and Denies fever(s) Card Reports no additional complaints and Denies syncope Resp Denies cough GI Denies abdominal pain and Denies heartburn Reports as per HPI and Denies change in libido Neuro Denies syncope Psych Denies change in libido Endo Denies change in libido Physical Exam Const General: cooperative, healthy appearing, comfortable and no acute distress Orientation/consciousness: patient oriented x3 HEENT Face and sinus: Yes normal facial exam Mouth: moist mucous membranes Neck Neck: Yes normal visual inspection, Yes full ROM and Yes trachea midline Chest Chest palpation & inspection: normal inspection of the chest Resp Effort & Inspection: normal respiratory effort, able to speak in complete sentences and no respiratory distress GI Inspection: Yes normal to inspection Back/Spine/Pelvis Cervical Spine: normal cervical lordosis Thoracic/Lumbar Spine: thoracic and lumbar spine normal to inspection Skin General skin exam: no rashes or lesions noted Neuro General: patient oriented x3, gait normal, tone normal and moves all extremities Extrem General: Yes normal to inspection and Yes capillary refill normal Office Procedures Post Void Residual Post Residual Void Post Void Residual (PVR): 0 68806-[id number] Void Residual by ultrasound Assessment & Plan Assessment & Plan (1) Erectile dysfunction associated with type 2 diabetes mellitus: Code(s): E11.69 - Type 2 diabetes mellitus with other specified complication; N52.1 - Erectile dysfunction due to diseases classified elsewhere (2) Peyronie's disease: Code(s): N48.6 - Induration penis plastica Plan Six-month follow-up Orders: Orders AMB Post Void Residual by ultrasound Today Z13.9 - Encounter for screening, unspecified Medications: New vitamin E (dl, acetate) 450 mg PO DAILY 90 days 90 caps 1RF N48.6 - Induration penis plastica pentoxifylline ER administer with meals 400 mg PO BID 90 days 180 tabs 1RF N48.6 - Induration penis plastica Patient Instructions: Imaging studies, laboratory and physical exam results were discussed and reviewed in detail. No major barriers to patient understanding were identified. An opportunity to ask questions regarding the treatment plan was provided. All questions were answered. The patient expressed understanding and agreement with the above treatment plan. The patient is aware they should contact our office by phone for worsening of their current condition or the appearance of new urologic symptoms. Compliance is encouraged with any medications and followup testing that is ordered. It is a privilege to participate in the urologic care of your patient. If you have any questions or concerns regarding treatment for the above conditions, or other urologic issues, please do not hesitate to contact me. The office telephone contact is [phone]. This note is constructed using voice recognition software. While every effort has been made to ensure accuracy fabricating machine operator errors may have been included. Yours sincerely, Dr Eliezer Gaspar MD, [facility] - Urology Providers of Expert, Compassionate Care for the Genitourinary System Coding Level of Care Code Est Pt Level 4 (26307) Diagnoses Erectile dysfunction associated with type 2 diabetes mellitus E11.69; N52.1 Peyronie's disease N48.6 CPT Codes Post Residual Void - PVR CPT Code: 56674-Gpfp Void Residual by ultrasound ([id number])
== END 2023-04-22 10:58 | disposition home or self-care (01) ==
PROVIDERS: PCP Internal Medicine; Visit Provider Urology
DX: E11.69 Type 2 diabetes mellitus with other specified complication (principal); N52.1 Erectile dysfunction due to diseases classified elsewhere; N48.6 Induration penis plastica
CPT/HCPCS: 99214

== ENCOUNTER → 2023-04-22 09:29 | Outpatient (BNVA) | payer OTHER, SELFPAY | PROVIDERS: PCP Internal Medicine; Visit Provider Urology | DX: E11.69 Type 2 diabetes mellitus with other specified complication (principal); N52.1 Erectile dysfunction due to diseases classified elsewhere; N48.6 Induration penis plastica | CPT/HCPCS: 51798; 99212 ==

== ENCOUNTER 2023-05-04 22:53 | Emergency (ER) | payer MEDICARE, MEDICAID, OTHER, SELFPAY ==
--- NOTE | 2023-05-04 | ECG_ITS ---
Test Reason : CX PAIN Blood Pressure : / mmHG Vent. Rate : 090 BPM Atrial Rate : 090 BPM P-R Int : 154 ms QRS Dur : 128 ms QT Int : 390 ms P-R-T Axes : 053 -10 016 degrees QTc Int : 477 ms Poor data quality, interpretation may be adversely affected Sinus rhythm with occasional Premature ventricular complexes Right bundle branch block Abnormal ECG When compared with ECG of 08-OCT-2020 01:27, Premature ventricular complexes are now Present Referred By: Generic ED Physician Electronically Signed By:
--- NOTE | ~2023-05-04 | XR_ITS ---
EXAMINATION: XR CHEST CLINICAL INFORMATION: Cough, pain COMPARISON: 10/08/2020 TECHNIQUE: 2 views of the chest were obtained. FINDINGS: The lungs are clear with no focal consolidation. No evidence of pneumothorax, pulmonary edema, or pleural effusions. The cardiomediastinal silhouette is unremarkable. No acute osseous findings. XR/XR chest 2V IMPRESSION: No acute cardiopulmonary findings.
[2023-05-04 23:08] VITALS: BP 167/82; PULSE 88; RESP 18; TEMP 36.7; O2SAT 97; BMI 34.3
[2023-05-04 23:17] LABS: Basophils Percent Auto 0.8 % (0-2); Eosinophils Absolute Auto 0.1 X10*3/uL (0.0-0.4); Eosinophils Percent Auto 2.8 % (0-4); Hematocrit 37.7 % (42.0-52.0); Hemoglobin 12.6 g/dl (14.0-18.0); Imm Gran Abs Auto 0.01 X10*3/uL (0.00-0.03); Imm Gran Pct Auto 0.2 % (0.0-0.4); Lymphocytes Absolute Auto 2.2 X10*3/uL (1.2-4.9); Lymphocytes Percent Auto 42.5 % (20-40); MANUAL DIFF FLAG NO; Mean Corpuscular HGB Conc 33.4 g/dl (31.0-36.0); Mean Corpuscular Hemoglobin 28.8 pg (27.0-33.0); Mean Corpuscular Volume 86.1 fL (80.0-98.0); Mean Platelet Volume 10.8 fL (9.4-12.4); Monocytes Absolute Auto 0.6 X10*3/uL (0.1-1.2); Monocytes Percent Auto 10.8 % (2-11); Neutrophils Absolute Auto 2.2 x10*3/uL (2.0-8.3); Neutrophils Percent Auto 42.9 % (45-73); Platelet Count 212 X10*3/uL (160-400); Red Blood Count 4.38 X10*6/uL (4.60-5.80); Red Cell Distribution Width 13.6 % (11.0-16.0); White Blood Count 5.1 X10*3/uL (4.8-10.8)
[2023-05-04 23:33] LABS: Alanine Aminotransferase 16 U/L (0-40); Alkaline Phosphatase 51 U/L (39-117); Anion Gap 14 (12-20); Aspartate Amino Transferase 22 U/L (5-37); Bilirubin Direct < 0.2 mg/dL (0.0-0.5); Bilirubin Total 0.2 mg/dL (0.0-1.0); Blood Urea Nitrogen 19 mg/dL (9-16); Calcium 9.1 mg/dL (8.4-10.2); Carbon Dioxide 23 mmol/L (22-29); Chloride 107 mmol/L (96-108); Creatinine Clr Calc Pharmacy 60.7; Estimated Glomerular Filt Rate 48; Glucose Random 148 mg/dL (60-115); Lipase 27 U/L (8-78); Sodium 140 mmol/L (135-145); Total Protein 7.4 g/dL (6.5-8.0)
[2023-05-04 23:34] LABS: COVID-19 Test Negative (Negative); IDNOW Serial# 08D9AD1C; IDNOW Serial# 152EDE1D; Influenza A Negative (Negative); Influenza B2 Negative (Negative)
[2023-05-04 23:39] LABS: Troponin-I High Sensitivity 7.4 ng/L (<3.5-35.0)
--- NOTE | 2023-05-05 03:11 | ED_ITS ---
HPI - URI/Sore Throat General Chief Complaint: Upper Respiratory Symptoms Stated Complaint: chest pain Time Seen by Provider: 05/05/23 03:08 Source: patient and old records reviewed Mode of arrival: ambulatory Limitations: no limitations History of Present Illness HPI Narrative: 63 yo male with DM, HTN, perforated ulcer, leukopenia, DM, GERD here with c/o cough dry for 1 week took nyquil felt his chest get tight got nervous no fevers, no sputum production - denies travel. He feels better now, chest tightness started after a coughing fit MD elicited complaint: cough Onset (ago): week(s) (1) Consistency: intermittent Severity: mild Description of mucous: clear Able to tolerate fluids by mouth: Yes Exacerbating factors: other (coughing) Relieving factors: OTC cold medicine Associated symptoms: cough and chest pain Treatments prior to arrival: cold medicine Related Data Previous Rx's Medication Instructions Recorded lancets 28 gauge #100 ea 07/29/20 fluticasone propionate 50 1 spray intranasal DAILY #16 mL 08/18/20 mcg/actuation nasal spray,suspension blood sugar diagnostic (FreeStyle 1 strip miscellaneous TID 30 days 04/10/21 Lite Strips) #100 strips dulaglutide 0.75 mg/0.5 mL 0.75 mg (0.5 mL) subcut QWEEK 90 01/22/22 subcutaneous pen injector days #6.5 mL (Trulicity) tadalafil 10 mg tablet 10 mg PO DAILY 90 days #90 tabs 02/14/22 tadalafil 20 mg tablet 20 mg PO ONCE PRN sexual activity 02/14/22 30 days #30 tabs blood-glucose meter (FreeStyle #1 ea 07/18/22 Lite Meter kit) betamethasone dipropionate 0.05 % 1 appl topical DAILY PRN skin 04/18/23 topical ointment irritation 2 weeks #15 grams chlorthalidone 25 mg tablet 25 mg PO DAILY 90 days #90 tabs 04/18/23 cholecalciferol (vitamin D3) 25 25 mcg PO DAILY 90 days #90 caps 04/18/23 mcg (1,000 unit) capsule lisinopril 40 mg tablet 40 mg PO DAILY 90 days #90 tabs 04/18/23 metformin 1,000 mg tablet 1,000 mg PO BID 90 days #180 tabs 04/18/23 simvastatin 80 mg tablet 80 mg PO BEDTIME 90 days #90 tabs 04/18/23 pentoxifylline 400 mg 400 mg PO BID 90 days #180 tabs 04/22/23 tablet,extended release vitamin E (dl, acetate) 450 mg 450 mg PO DAILY 90 days #90 caps 04/22/23 (1,000 unit) capsule benzonatate 200 mg capsule 200 mg PO BID PRN cough #20 caps 05/05/23 Allergies Allergy/AdvReac Type Severity Reaction Status Date / Time No Known Allergies Allergy Verified 03/05/23 02:35 [No Known Allergies*] Review of Systems 2 Review of Systems: Constitutional : No Fever, No Chills ENT/Mouth : No Hoarseness, No sore throat, No Rhinorrhea Eyes: No Redness, No Discharge, No Vision Changes Cardiovascular : pos Chest Pain, no SOB, positive Dyspnea on Exertion, No Edema Respiratory : positive Cough, No Sputum, no Wheezing, Gastrointestinal : No Nausea, No Vomiting, No Diarrhea, No abdominal Pain Genitourinary : No Dysuria, No Hematuria Musculoskeletal : No joint pain, No Myalgias Skin : No rash Neuro : No Weakness, No Numbness, No Headache Psych : No anxiety, depression Heme/Lymph: No Bruising, No Bleeding Endocrine : No Polyuria, No Polydipsia All other systems reviewed and are negative PMFSH Past Medical History Attestation statement: The following information was validated with the patient. Source: old records reviewed Medical History GERD (gastroesophageal reflux disease) Perforated gastric ulcer Leukopenia Leg edema Lipoma of extremity Essential hypertension Diabetes mellitus Dyslipidemia Surgical History History of exploratory laparotomy History of intestinal surgery Family History Family History Father Diabetes Hypertension CVD (cardiovascular disease) Mother Stroke Diabetes Hypertension Brother No problems noted. Sister No problems noted. Family/Other Mental health disorder Social History Social History Household Members: Family Housing: House Alcohol intake: current Alcohol intake frequency: does not drink Alcohol type: beer Patient Tobacco Use Status: Never used Tobacco Smoked in Last 30 Days: No e-Cigarette/Vaping Use: Never Used Second Hand Smoke Exposure: No Substance Use Type: Marijuana Substance Use Frequency: Occasionally Advance Directives: No Advance Directives Information Provided: No service: No Current occupational status: disabled Cognitive needs: No Hearing needs: No Vision needs: No Physical Exam 2 Vital Signs: Vital Signs: Last Vital Signs Temp 98.1 F 05/04/23 23:08 Pulse 88 05/04/23 23:08 Resp 18 05/04/23 23:08 BP 167/82 H 05/04/23 23:08 Pulse Ox 97 05/04/23 23:08 O2 Del Method Room Air 05/04/23 23:08 BMI result Body Mass Index 34.3 Appearance: Alert. Oriented X3. No acute distress. Eyes: Pupils equal, round and reactive to light. ENT: Pharynx normal. Neck: Normal inspection. Neck supple. CVS: Normal heart rate and rhythm. Pulses normal. Respiratory: No respiratory distress. Breath sounds normal. Abdomen: Soft and nontender. Skin: Skin warm and dry. Normal skin color. Normal skin turgor. Extremities: No lower extremity edema. No calf ttp Neuro: Oriented X 3. No motor deficit. No sensory deficit. Medications Administered Discontinued Medications Generic Name Dose Route Start Last Admin Trade Name Freq PRN Reason Stop Dose Admin Benzonatate 100 mg 05/05/23 03:25 05/05/23 03:33 Benzonatate 100 Mg Capsule PO 05/05/23 03:26 100 mg ONCE ONE Administration Medical Decision Making Medical Decision Making [facility] Narrative: 63 yo male with DM, HTN, perforated ulcer, leukopenia, DM, GERD here with c/o dry cough and runny nose after he thinks he was exposed to cold air. He is not toxic, chest tightness related to coughing fit doubt ACS or VTE - will obtain labs, EKG, CXR and viral panel. Clear lungs and no hypoxia will start on tessalon if ED work up negative. Differential Diagnosis Differential Diagnoses: The differential diagnosis associated with the presentation includes URI, viral syndrome, pneumonia, bronchitis Admission/Observation Consideration of admission/observation: Escalation of care including admission/observation considered VS stable, mild dehydration, tolerating PO stable for outpatient management Lab Data [facility] Lab Attestation statement: I reviewed the patient's lab results. 05/04/23 23:08 05/04/23 23:08 Labs: Lab Results 05/04/23 Range/Units 23:08 WBC 5.1 (4.8-10.8) X10*3/uL RBC 4.38 L (4.60-5.80) X10*6/uL Hgb 12.6 L (14.0-18.0) g/dl Hct 37.7 L (42.0-52.0) % MCV 86.1 (80.0-98.0) fL MCH 28.8 (27.0-33.0) pg MCHC 33.4 (31.0-36.0) g/dl RDW 13.6 (11.0-16.0) % Plt Count 212 (160-400) X10*3/uL MPV 10.8 (9.4-12.4) fL Immature Gran % (Auto) 0.2 (0.0-0.4) % Neut % (Auto) 42.9 L (45-73) % Lymph % (Auto) 42.5 H (20-40) % King[place]isher % (Auto) 10.8 (2-11) % Eos % (Auto) 2.8 (0-4) % Baso % (Auto) 0.8 (0-2) % Lymph # (Auto) 2.2 (1.2-4.9) X10*3/uL [place] # (Auto) 0.6 (0.1-1.2) X10*3/uL Eos # (Auto) 0.1 (0.0-0.4) X10*3/uL Baso # (Auto) 0.0 (0.0-0.2) X10*3/uL Abs Immat Gran (auto) 0.01 (0.00-0.03) X10*3/uL Absolute Neuts (auto) 2.2 (2.0-8.3) x10*3/uL Absolute Nucleated RBC 0.000 (0.0-0.012) X10*3/uL Nucleated RBC % (auto) 0.0 (0.0-0.2) /100WBC Sodium 140 (135-145) mmol/L Potassium 4.0 (3.3-5.1) mmol/L Chloride 107 (96-108) mmol/L Carbon Dioxide 23 (22-29) mmol/L Anion Gap 14 (12-20) BUN 19 H (9-16) mg/dL Creatinine 1.47 H (0.5-1.4) mg/dL Estim Creat Clear Calc 60.7 Estimated GFR 48 Random Glucose 148 H (60-115) mg/dL Calcium 9.1 (8.4-10.2) mg/dL Total Bilirubin 0.2 (0.0-1.0) mg/dL Direct Bilirubin < 0.2 (0.0-0.5) mg/dL AST 22 (5-37) U/L ALT 16 (0-40) U/L Alkaline Phosphatase 51 (39-117) U/L Troponin I High Sens 7.4 (<3.5-35.0) ng/L Total Protein 7.4 (6.5-8.0) g/dL Albumin 4.0 (3.5-5.0) g/dL Lipase 27 (8-78) U/L COVID-19 (KARLY) Negative (Negative) COVID-19 Clin Com See Note Influenza Type A (EVAN) Negative (Negative) Influenza Type B (EVAN) Negative (Negative) Influenza A & B Note See Note Independent Interpretation I performed an independent interpretation of an: EKG and Plain X-Ray (normal ) Interpretation: Rate: 66 Rhythm: NSR [place]: noraml Normal P waves. Normal CONNIE. RBB ST T wave : normal no CAROL qTC: 440 prior studies: no acute ischemia The study has been interpreted contemporaneously by me. . Radiology Impression Discussion of test interpretation with radiology: I have reviewed the radiologist's reading. External Record Review External record reviewed: Inpatient record Prescription Management I considered prescription management with: Other Discharge Plan Discharge Clinical Impression: Acute viral bronchitis Patient Disposition: Home, Self-Care Instructions: Acute Bronchitis (ED) Additional Instructions: normal chest xray, labs, negative swabs for flu and covid. continue to use cough or cold medications as needed. return for worsening symptoms or difficulty breathing, inability to eat or drink. you were mildly dehydrated drink plenty of fluids have your doctor recheck your kidney function in 2 days radiograf?a de t?rax normal, laboratorios, hisopados negativos para gripe y covid. Contin?e usando medicamentos para la tos o el resfriado seg?n sea necesario. Regrese si los s?ntomas empeoran o tiene dificultad para respirar, incapacidad para comer o beber. estaba levemente deshidratado mariano muchos l?quidos jay que reyes m?dico vuelva a controlar reyes funci?n renal en 2 d?as Prescriptions: New benzonatate 200 mg capsule 200 mg PO BID PRN (Reason: cough) Qty: 20 0RF No Action (DME) lancets 28 gauge misc See Rx Instructions topical DAILY Qty: 100 11RF Rx Instructions: As directed fluticasone propionate 50 mcg/actuation spray,suspension 1 spray intranasal DAILY Qty: 16 4RF FreeStyle Lite Strips Strip 1 strip miscellaneous TID 30 Days Qty: 100 6RF (DME) blood-glucose meter [FreeStyle Lite Meter] Kit See Rx Instructions .Route Qty: 1 0RF Rx Instructions: As directed chlorthalidone 25 mg tablet 25 mg PO DAILY 90 Days Qty: 90 1RF cholecalciferol (vitamin D3) 25 mcg (1,000 unit) capsule 25 mcg PO DAILY 90 Days Qty: 90 1RF lisinopril 40 mg tablet 40 mg PO DAILY 90 Days Qty: 90 1RF metformin 1,000 mg tablet 1,000 mg PO BID 90 Days Qty: 180 1RF simvastatin 80 mg tablet 80 mg PO BEDTIME 90 Days Qty: 90 1RF betamethasone dipropionate 0.05 % ointment 1 appl topical DAILY PRN (Reason: skin irritation) 14 Days Qty: 15 0RF Trulicity 0.75 mg/0.5 mL pen injector 0.75 mg subcut QWEEK 90 Days Qty: 6.5 1RF tadalafil 20 mg tablet 20 mg PO ONCE PRN (Reason: sexual activity) 30 Days Qty: 30 0RF Rx Instructions: Use 1 tablet on demand p.r.n. in addition lower daily dose tadalafil 10 mg tablet 10 mg PO DAILY 90 Days Qty: 90 1RF pentoxifylline 400 mg tablet extended release 400 mg PO BID 90 Days Qty: 180 1RF Rx Instructions: administer with meals vitamin E (dl, acetate) 450 mg (1,000 unit) capsule 450 mg PO DAILY 90 Days Qty: 90 1RF Referrals: Jessica Grajeda MD [Primary Care Provider] - (dos vieira) Interventions: ED Discharge Assessment Last Done: 05/05/23 03:57 Discharge Date/Time: 05/05/23 03:57 Print Language: Qatari
[2023-05-05] MEDS: Benzonatate 100 MG CAPSULE PO (03:33)
== END 2023-05-05 03:57 | disposition home or self-care (01) ==
PROVIDERS: Emergency Provider Emergency Medicine; PCP Internal Medicine
DX: J20.8 Acute bronchitis due to other specified organisms (principal); R07.89 Other chest pain; I45.10 Unspecified right bundle-branch block; R05.9 Cough, unspecified; Z11.52 Encounter for screening for COVID-19; Z79.899 Other long term (current) drug therapy
CPT/HCPCS: 36415; 71046; 80048; 80076; 83690; 84484; 85025; 87502; 87635; 93005; 99283; 99284

== ENCOUNTER 2023-06-09 08:36 | Outpatient (REF) | payer MEDICARE, MEDICAID, SELFPAY ==
[2023-06-09 08:49] LABS: MANUAL DIFF FLAG NO
[2023-06-09 09:36] LABS: Basophils Absolute Auto 0.1 X10*3/uL (0.0-0.2); Basophils Percent Auto 1.5 % (0-2); Eosinophils Absolute Auto 0.1 X10*3/uL (0.0-0.4); Eosinophils Percent Auto 2.7 % (0-4); Hematocrit 37.5 % (42.0-52.0); Hemoglobin 12.3 g/dl (14.0-18.0); Imm Gran Abs Auto 0.03 X10*3/uL (0.00-0.03); Imm Gran Pct Auto 0.9 % (0.0-0.4); Lymphocytes Absolute Auto 1.2 X10*3/uL (1.2-4.9); Lymphocytes Percent Auto 34.8 % (20-40); Mean Corpuscular HGB Conc 32.8 g/dl (31.0-36.0); Mean Corpuscular Hemoglobin 28.9 pg (27.0-33.0); Mean Corpuscular Volume 88.2 fL (80.0-98.0); Mean Platelet Volume 11.1 fL (9.4-12.4); Monocytes Absolute Auto 0.4 X10*3/uL (0.1-1.2); Monocytes Percent Auto 11.2 % (2-11); Neutrophils Absolute Auto 1.7 x10*3/uL (2.0-8.3); Neutrophils Percent Auto 48.9 % (45-73); Platelet Count 208 X10*3/uL (160-400); Red Blood Count 4.25 X10*6/uL (4.60-5.80); Red Cell Distribution Width 14.2 % (11.0-16.0); White Blood Count 3.4 X10*3/uL (4.8-10.8)
[2023-06-09 09:58] LABS: Creatinine Urine 194.26 mg/dL; Microalbum/Creatinine Ratio Ur 2.5 ug/mg cr (<30)
[2023-06-09 10:00] LABS: Alanine Aminotransferase 14 U/L (0-40); Albumin Level 4.1 g/dL (3.5-5.0); Alkaline Phosphatase 48 U/L (39-117); Anion Gap 10 (12-20); Aspartate Amino Transferase 20 U/L (5-37); Bilirubin Total 0.4 mg/dL (0.0-1.0); Blood Urea Nitrogen 19 mg/dL (9-16); Calcium 9.7 mg/dL (8.4-10.2); Carbon Dioxide 28 mmol/L (22-29); Chloride 106 mmol/L (96-108); Cholesterol 132 mg/dL (<200); Estimated Glomerular Filt Rate 54; Glucose Fasting 183 mg/dL (60-99); HDL Cholesterol 49 mg/dL (>40); LDL Cholesterol Calculated 71 mg/dL (<100); Potassium 4.2 mmol/L (3.3-5.1); Sodium 140 mmol/L (135-145); Total Protein 7.5 g/dL (6.5-8.0); Triglycerides 60 mg/dL (<150)
[2023-06-09 10:19] LABS: PSA,Total (Free>4and<10) 0.33 ng/mL (0.00-4.00)
== END 2023-06-09 08:37 | disposition home or self-care (01) ==
LOC: HO.LAB 08:36
PROVIDERS: PCP Internal Medicine; Visit Provider Internal Medicine
DX: E55.9 Vitamin D deficiency, unspecified (principal); E11.69 Type 2 diabetes mellitus with other specified complication; N52.1 Erectile dysfunction due to diseases classified elsewhere; E78.5 Hyperlipidemia, unspecified; D72.819 Decreased white blood cell count, unspecified; Z12.5 Encounter for screening for malignant neoplasm of prostate
CPT/HCPCS: 36415; 80053; 80061; 82043; 82306; 82570; 84153; 85025

== ENCOUNTER 2023-07-02 15:05 | Outpatient (AMB) | payer MEDICARE, MEDICAID, SELFPAY ==
[2023-07-02 15:13] VITALS: BP 132/70; BMI 33.1
--- NOTE | 2023-07-02 15:13 | MHC.PC.OV ---
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 Accompanied by: Self / Same As Patient Allergies No Known Allergies [No Known Allergies*] Allergy (Verified 07/02/23 15:43) Medication List - Last Reconciled 07/02/23 by Jessica Cha MD blood sugar diagnostic (FreeStyle Lite Strips) 1 strip miscellaneous TID 30 days blood-glucose meter (FreeStyle Lite Meter kit) As directed chlorthalidone 25 mg PO DAILY 90 days cholecalciferol (vitamin D3) 25 mcg PO DAILY 90 days dulaglutide (Trulicity) 0.75 mg (0.5 mL) subcut QWEEK 90 days fluticasone propionate 50 mcg/actuation 1 spray intranasal DAILY lancets As directed lisinopril 40 mg PO DAILY 90 days metformin 1,000 mg PO BID 90 days pentoxifylline ER 400 mg PO BID 90 days simvastatin 80 mg PO BEDTIME 90 days vitamin E (dl, acetate) 450 mg PO DAILY 90 days Tobacco use date assessed: 07/02/23 Fall risk assessment: No Falls in past year Last assessed Fall Risk: 07/02/23 Dental Screening Dental Screen Date: 07/02/23 Did you have a dental visit in the last 12 months?: No Did you have a dental problem in the last 6 months where you did not have access to dental care?: No Was dental information given to patient?: Patient has dentist HPI HPI Comments History of Present Illness Details This is a 63-year-old male with diabetes mellitus type 2, hypertension, dyslipidemia and low vitamin-D that comes today for follow-up on his conditions. A1c elevated and he admits not using Trulicity. I will add Jardiance. Blood pressure stable. LDL is very close to goal. On vitamin-D supplements for his low vitamin-D. Denies any chest pain or shortness of breath. [facility] Medical History (Updated 07/02/23 @ 20:00 by Jessica Cha MD) Erectile dysfunction associated with type 2 diabetes mellitus GERD (gastroesophageal reflux disease) Perforated gastric ulcer Leukopenia Leg edema Lipoma of extremity Essential hypertension Diabetes mellitus Dyslipidemia Surgical History History of exploratory laparotomy History of intestinal surgery Family History Father Diabetes Hypertension CVD (cardiovascular disease) Mother Stroke Diabetes Hypertension Brother No problems noted. Sister No problems noted. Family/Other Mental health disorder Social History Household Members: Family Housing: House Alcohol intake: current Alcohol intake frequency: holidays/special occasions only Alcohol type: beer and hard liquor Patient Tobacco Use Status: Never used Tobacco e-Cigarette/Vaping Use: Never Used Second Hand Smoke Exposure: No Substance Use Type: Marijuana service: No Current occupational status: disabled Cognitive needs: No Hearing needs: No Vision needs: No Questionnaire PHQ-9 Over the last 2 weeks, how often have you been bothered by any of the following problems? 1. Little interest or pleasure in doing things: not at all 2. Feeling down, depressed, or hopeless: not at all 3. Trouble falling or staying asleep, or sleeping too much: not at all 4. Feeling tired or having little energy: not at all 5. Poor appetite or overeating: not at all 6. Feeling bad about yourself - or that you are a failure or have let yourself or your family down: not at all 7. Trouble concentrating on things, such as reading the newspaper or watching television: not at all 8. Moving or speaking so slowly that other people could have noticed. Or the opposite - being so fidgety or restless that you have been moving around a lot more than usual: not at all 9. Thoughts that you would be better off or of hurting yourself in some way: not at all Total score: 0 Depression Screening Interpretation: Negative Depression Screening Done: Yes 06443 - PHQ-9 Billing: Yes Source: Developed by Drs. Jeison Forbes, Ros Peacock, Francisco Rocha and colleagues, with an educational esvin from [employer]. Thrive Questionnaire Date Thrive assessed: 07/02/23 I am a: Patient What is your living situation today?: I have a steady place to live Within the past 12 months, did the food you bought not last and you didn't have the money to get more?: Never true Within the past 12 months, did you worry whether your food would run out before you got money to buy more?: Never true Do you have trouble paying for medicines?: No Do you have trouble getting transportation to medical appointments?: No Do you have trouble paying your heating and electricity bill?: No Do you have trouble taking care of your child, family member or friend?: No Do you have trouble with day-to-day activities such as bathing, preparing meals, shopping, managing finances, etc.?: No Are you currently unemployed and looking for a job?: No Are you interested in more education?: No Please select the resources that you would like help with: None Currently or been in a relationship where the following occur: no concerns reported THRIVE Score: 0 AUDIT C Alcohol Use Questionnaire (AUDIT-C) 1. How often do you have a drink containing alcohol?: Monthly or less 2. How many drinks containing alcohol do you have on a typical day when you are drinking?: 1 or 2 3. How often do you have six or more drinks on one occasion?: Never Total Score: 1 Score Reviewed/Action Taken: No NAJMA-7 AMB Questionnaire NAJMA-7 Date NAJMA - 7 assessed: 07/02/23 Feeling nervous, anxious, or on edge: 0 = Not at all Not being able to stop or control worryin = Not at all Worrying too much about different things: 0 = Not at all Trouble relaxin = Not at all Being so restless that it is hard to sit still: 0 = Not at all Becoming easily annoyed or irritable: 0 = Not at all Feeling afraid as if something awful might happen: 0 = Not at all Total NAJMA-7 score (0-4 normal; 5-9 mild; 10-14 moderate; 15-21 severe): 0 Source: Developed by Drs. Jeison Forbes, Ros Peacock, Francisco Rocha and colleagues, with an educational esvin from [employer]. NAJMA-7 Assessment Billing NAJMA-7 Assessment Tool: NAJMA-7 Assessment 48520 Review of Systems Const All systems reviewed & are unremarkable except as noted in HPI and below Eyes Reports no additional complaints, Denies change in vision and Denies other visual disturbances Card Denies chest pain at rest, Denies chest pain with activity, Denies edema, Denies irregular heart rhythm, Denies claudication, Denies dyspnea, Denies dyspnea on exertion, Denies orthopnea, Denies paroxysmal nocturnal dyspnea and Denies slow heart rate Resp Denies cough, Denies dyspnea and Denies dyspnea on exertion GI Denies abdominal pain, Denies change in bowel habits, Denies excessive flatus, Denies nausea and Denies vomiting Denies urinary hesitancy, Denies urinary incontinence and Denies urinary urgency Physical exam (Primary Care) Vital Signs: Last Vital Signs BP 132/70 07/02/23 15:13 BMI result Body Mass Index 33.1 Tobacco/Smoking Status: Tobacco use Status Tobacco use date assessed 07/02/23 07/02/23 15:28 Patient Tobacco Use Status Never used Tobacco 07/02/23 15:28 e-Cigarette/Vaping Use Never Used 07/02/23 15:28 PHQ-9: PHQ-9 Score PHQ-9: Total score 0 07/02/23 15:53 Depression Screening Interpretation: Negative Thrive Assessment: Date of Thrive Assessment Date Thrive assessed 07/02/23 07/02/23 15:28 Currently or been in a relationship where the following occur: no concerns reported Resp Effort & Inspection: normal respiratory effort Auscultation: clear to auscultation bilaterally Cardio Jugular venous distension: no JVD Rate: regular rate Rhythm: regular rhythm Heart sounds: S1 normal heart sound present and S2 normal heart sound present Extrem General: Yes full ROM Results AMB Hemoglobin A1c AMB Hemoglobin A1c 7.9 % Last Edit by HUEY Burgess on 07/02/23 15:30 Results Reviewed Results Reviewed: Laboratory Last Values Hgb A1c (Clinic) 7.9 % (4.0-6.0) H 07/02/23 15:12 Assessment and Plan Assessment & Plan (1) Diabetes mellitus: Code(s): E11.9 - Type 2 diabetes mellitus without complications Qualifiers: Diabetes mellitus type: type 2 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 Start Jardiance. A1c goal is equal or less than 7%. (2) Dyslipidemia: Code(s): E78.5 - Hyperlipidemia, unspecified Plan: Continue statins. LDL goal is less than 70. (3) Essential hypertension: Code(s): I10 - Essential (primary) hypertension Plan: Continue lisinopril. Blood pressure goal is equal or less than 130/80. (4) Hypovitaminosis D: Code(s): E55.9 - Vitamin D deficiency, unspecified Plan: Continue vitamin-D supplements. Orders: Orders AMB Hemoglobin A1c Today E11.9 - Type 2 diabetes mellitus without complications Medications: New empagliflozin (Jardiance) 10 mg PO DAILY 90 days 90 tabs 1RF E11.9 - Type 2 diabetes mellitus without complications Discontinued dulaglutide (Trulicity) Discontinued Reason: Patient Completed Course 0.75 mg (0.5 mL) subcut QWEEK 90 days 6.5 mL 1RF E11.9 - Type 2 diabetes mellitus without complications Coding Level of Care Code Est Pt Level 4 (49696) Diagnoses Type 2 diabetes mellitus without complication, without long-term current use of insulin E11.9 Diabetes mellitus type: type 2 Diabetes mellitus 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
== END 2023-07-02 15:50 | disposition home or self-care (01) ==
PROVIDERS: PCP Internal Medicine; Visit Provider Internal Medicine
DX: E11.65 Type 2 diabetes mellitus with hyperglycemia (principal); E78.5 Hyperlipidemia, unspecified; I10 Essential (primary) hypertension; E55.9 Vitamin D deficiency, unspecified
CPT/HCPCS: 83036; 99214

== ENCOUNTER 2023-07-19 14:38 | Emergency (ER) | payer MEDICARE, MEDICAID, SELFPAY ==
[2023-07-19 14:48] VITALS: BP 152/72; PULSE 79; RESP 18; TEMP 36.4; O2SAT 99; BMI 36.1
--- NOTE | 2023-07-19 14:49 | ED.GENADULT ---
HPI - General Adult General Chief complaint: Extremity Injury, Upper Stated complaint: swelling on right elbow Time Seen by Provider: 07/19/23 14:55 Source: patient and medical interpreter Mode of arrival: ambulatory Limitations: language barrier History of Present Illness HPI narrative: 63 yo male with history of GERD, DM, HTN, HLD here with right elbow swelling x 1 day. No injury or trauma. No pain, numbness, tingling, weakness. Patient is right hand dominant. Related Data Previous Rx's ?Medication ?Instructions ?Recorded lancets 28 gauge #100 ea 07/29/20 fluticasone propionate 50 1 spray intranasal DAILY #16 mL 08/18/20 mcg/actuation nasal spray,suspension blood-glucose meter (FreeStyle #1 ea 07/18/22 Lite Meter kit) metformin 1,000 mg tablet 1,000 mg PO BID 90 days #180 tabs 04/18/23 empagliflozin 10 mg tablet 10 mg PO DAILY 90 days #90 tabs 07/02/23 (Jardiance) blood sugar diagnostic (FreeStyle 1 strip miscellaneous TID 30 days 07/17/23 Lite Strips) #100 strips chlorthalidone 25 mg tablet 25 mg PO DAILY 90 days #90 tabs 07/17/23 cholecalciferol (vitamin D3) 25 25 mcg PO DAILY 90 days #90 caps 07/17/23 mcg (1,000 unit) capsule lisinopril 40 mg tablet 40 mg PO DAILY 90 days #90 tabs 07/17/23 pentoxifylline 400 mg 400 mg PO BID 90 days #180 tabs 07/17/23 tablet,extended release simvastatin 80 mg tablet 80 mg PO BEDTIME 90 days #90 tabs 07/17/23 vitamin E (dl, acetate) 450 mg 450 mg PO DAILY 90 days #90 caps 07/17/23 (1,000 unit) capsule Allergies Allergy/AdvReac Type Severity Reaction Status Date / Time No Known Allergies Allergy Verified 07/19/23 14:54 [No Known Allergies*] Review of Systems Review of Systems: Yes all other systems are reviewed and are negative Constitutional: Constitutional: Reports no additional constitutional complaints, Denies body ache(s), Denies chills, Denies fever(s), Denies headache(s) and Denies weakness Eyes: Eyes: Reports no additional eye complaints and Denies change in vision ENT: Reports system reviewed and no additional complaints, except as documented, Denies dizziness, Denies headache(s), Denies nasal congestion, Denies nasal discharge and Denies neck pain Cardiovascular: Cardiovascular: Reports no additional cardiovascular complaints, Denies chest pain, Denies leg edema and Denies dyspnea Respiratory: Respiratory: Reports no additional respiratory complaints, Denies cough and Denies dyspnea Gastrointestinal: Gastrointestinal: Reports no additional gastrointestinal complaints, Denies abdominal pain, Denies diarrhea, Denies nausea and Denies vomiting Genitourinary: Genitourinary: Denies urinary incontinence Musculoskeletal: Musculoskeletal: Reports no additional musculoskeletal complaints, Denies back pain, Reports arthralgias, Reports joint swelling, Denies limited range of motion, Denies neck pain, Denies numbness and Denies tingling Integumentary/Breasts: Skin/Breast: Reports system reviewed and no additional complaints, except as docu and Denies rash Neurologic: Reports system reviewed and no additional complaints, except as documented, Denies Abnormal speech present, Denies dizziness, Denies headache(s), Denies numbness, Denies tingling and Denies weakness PMFSH Past Medical History Medical History (Updated 07/19/23 @ 14:54 by Natasha Vincent NP) Erectile dysfunction associated with type 2 diabetes mellitus GERD (gastroesophageal reflux disease) Perforated gastric ulcer Leukopenia Leg edema Lipoma of extremity Essential hypertension Diabetes mellitus Dyslipidemia Surgical History History of exploratory laparotomy History of intestinal surgery Family History Family History Father Diabetes Hypertension CVD (cardiovascular disease) Mother Stroke Diabetes Hypertension Brother No problems noted. Sister No problems noted. Family/Other Mental health disorder Social History Social History Household Members: Family Housing: House Alcohol intake: current Alcohol intake frequency: holidays/special occasions only Alcohol type: beer and hard liquor Patient Tobacco Use Status: Never used Tobacco e-Cigarette/Vaping Use: Never Used Second Hand Smoke Exposure: No Substance Use Type: Marijuana service: No Current occupational status: disabled Cognitive needs: No Hearing needs: No Vision needs: No Physical Exam ED Vital Signs: Vital Signs - 24 hr 07/19/23 14:48 Temperature 97.6 F Pulse Rate 79 Respiratory Rate 18 Blood Pressure 152/72 H Pulse Oximetry 99 Oxygen Delivery Method Room Air BMI result Body Mass Index 36.1 Const General: cooperative, healthy appearing, comfortable and no acute distress Orientation/consciousness: patient oriented x3 Limitations: no limitations [facility] Head: Yes normal to inspection Ears: hearing grossly normal bilaterally General nose exam: Normal external nose present Face and sinus: Yes normal facial exam Mouth: Normal oral and palatal mucosa present Throat: Yes posterior oropharynx normal Eyes General: appearance normal, both eyes and all related structures Pupils: Equal, round and reactive pupils present Neck Neck: Yes normal visual inspection Chest Chest palpation & inspection: normal inspection of the chest Resp Effort & Inspection: normal respiratory effort Auscultation: clear to auscultation bilaterally Cardio Rate: regular rate Rhythm: regular rhythm Peripheral pulses: Peripheral pulses 2+ throughout GI Inspection: Yes normal to inspection Palpation (GI): Soft to palpation and nontender Auscultation: normal bowel sounds Back/Spine/Pelvis Thoracic/Lumbar Spine: thoracic and lumbar spine normal to inspection Skin General skin exam: no rashes or lesions noted Neuro General: patient oriented x3, no focal motor deficits and normal sensation to monofilament Cranial nerves: Yes Equal, round and reactive pupils present Cognition (Neuro): normal cognition Speech: No Abnormal speech present Gait exam (Neuro): Normal gait present Motor exam (neuro): 5/5 motor strength present throughout Extrem Other: +swelling noted to olecreanon with full active/passive ROM of the elbow noted. 2+ radial/ulnar pulses. Normal sensation. Medical Decision Making Medical Decision Making MDM Narrative: 63 yo male with history of GERD, DM, HTN, HLD here with right elbow swelling x 1 day. No injury or trauma. No pain, numbness, tingling, weakness. Patient is right hand dominant. Exam c/w with olecreanon burstitis with no s/s septic joint, bursitis or injury or trauma concerning for fracture. Placed in catracho wrap and discussed supportive care at home with the medical interpreter. Differential Diagnosis Differential Diagnoses: The differential diagnosis associated with the presentation includes see above Admission/Observation Consideration of admission/observation: Escalation of care including admission/observation considered Low suspicion for septic joint requiring imaging, labs and urgent orthopedic consultation and/or admission Tests considered The following testing was considered but not selected: Low suspicion for septic joint requiring imaging, labs Prescription Management I considered prescription management with: Antibiotic Chronic Conditions Patient?s care impacted by: Diabetes and Hypertension Discharge Plan Discharge Clinical Impression: Olecranon bursitis Patient Disposition: Home, Self-Care Instructions: Elbow Bursitis (ED) Additional Instructions: Use the catracho wrap if desired Apply hear or ice to the affected area of desired Follow-up with his PCP for any changes of symptoms Return for fever, inability to extend or flex the arm Prescriptions: No Action (DME) lancets 28 gauge misc See Rx Instructions topical DAILY Qty: 100 11RF Rx Instructions: As directed fluticasone propionate 50 mcg/actuation spray,suspension 1 spray intranasal DAILY Qty: 16 4RF (DME) blood-glucose meter [FreeStyle Lite Meter] Kit See Rx Instructions .Route Qty: 1 0RF Rx Instructions: As directed metformin 1,000 mg tablet 1,000 mg PO BID 90 Days Qty: 180 1RF FreeStyle Lite Strips Strip 1 strip miscellaneous TID 30 Days Qty: 100 6RF chlorthalidone 25 mg tablet 25 mg PO DAILY 90 Days Qty: 90 1RF cholecalciferol (vitamin D3) 25 mcg (1,000 unit) capsule 25 mcg PO DAILY 90 Days Qty: 90 1RF lisinopril 40 mg tablet 40 mg PO DAILY 90 Days Qty: 90 1RF pentoxifylline 400 mg tablet extended release 400 mg PO BID 90 Days Qty: 180 1RF Rx Instructions: administer with meals simvastatin 80 mg tablet 80 mg PO BEDTIME 90 Days Qty: 90 1RF vitamin E (dl, acetate) 450 mg (1,000 unit) capsule 450 mg PO DAILY 90 Days Qty: 90 1RF Jardiance 10 mg tablet 10 mg PO DAILY 90 Days Qty: 90 1RF Referrals: ED Physician,Generic [Physician] - Print Language: Citizen Of [place]
[2023-07-19 14:58] VITALS: BP 152/72; PULSE 79; RESP 18; TEMP 36.4; O2SAT 99
== END 2023-07-19 15:14 | disposition home or self-care (01) ==
LOC: HO.ED 14:58
PROVIDERS: Emergency Provider Emergency Medicine; PCP Internal Medicine
DX: M70.21 Olecranon bursitis, right elbow (principal); Y93.9 Activity, unspecified; E11.9 Type 2 diabetes mellitus without complications; I10 Essential (primary) hypertension; E78.5 Hyperlipidemia, unspecified; Z79.84 Long term (current) use of oral hypoglycemic drugs; Z79.02 Long term (current) use of antithrombotics/antiplatelets
CPT/HCPCS: 99282; 99283